=== PATIENT | female | born 1955 | race Caucasian/White ===

== ENCOUNTER 2020-11-13 08:33 | Outpatient (CLI) | payer OTHER, SELFPAY | END 2020-11-13 08:34 | disposition home or self-care (01) | LOC: ANHCOVIDVC 08:33 | PROVIDERS: PCP Family Medicine | DX: Z23 Encounter for immunization (principal) | CPT/HCPCS: 0001A; 91300 ==

== ENCOUNTER 2020-12-04 08:31 | Outpatient (CLI) | payer OTHER, SELFPAY | END 2020-12-04 08:32 | disposition home or self-care (01) | LOC: ANHCOVIDVC 08:31 | PROVIDERS: PCP Family Medicine | DX: Z23 Encounter for immunization (principal) | CPT/HCPCS: 0002A; 91300 ==

== ENCOUNTER → 2020-12-12 01:36 | Outpatient (CLI) | payer OTHER, SELFPAY ==
[2020-12-12 19:39] LABS: SARS-CoV-2 RNA PCR Negative
== END ==
PROVIDERS: PCP Family Medicine; Visit Provider Internal Medicine Gastroenterology
DX: Z01.812 Encounter for preprocedural laboratory examination (principal); Z20.822 Contact with and (suspected) exposure to COVID-19
CPT/HCPCS: C9803; U0003; U0005

== ENCOUNTER 2020-12-15 00:40 | Day surgery (SDC) | payer OTHER, SELFPAY ==
[2020-12-04 16:02] VITALS: BMI 22.7
[2020-12-15 10:26] VITALS: BP 209/87; PULSE 63; RESP 18; TEMP 36.6; O2SAT 96; BMI 22.5
[2020-12-15] MEDS: LACTATED RINGERS 1,000 ML 150 ML IV CONT (10:32)
--- NOTE | 2020-12-15 10:50 | WPDANESEPPF ---
Anes - Initial Pre Proc Eval Procedure: Operation Date: 12/15/20 11:15 Proposed Procedures p Screening Colonoscopy - Myron Barba MD Date/Time: 12/15/20 10:50 Surgeon: Myron Barba MD Pre Op Diagnosis: neoplasm screening Patient Data Age: 65 Gender: F Height: 5 ft 6 in Weight: 63.4 kg Last Vital Signs Temp 97.8 F 12/15/20 10:26 Pulse 63 12/15/20 10:26 Resp 18 12/15/20 10:26 BP 209/87 H 12/15/20 10:26 Pulse Ox 96 12/15/20 10:26 Allergies Allergy/AdvReac Type Severity Reaction Status Date / Time codeine Allergy Unknown allergic Verified 12/15/20 10:18 Home Medications Medication Instructions Recorded Confirmed Type triamcinolone acetonide 0.1 % 1 applic TOPICAL QID #80 gm 07/11/19 12/15/20 Rx topical cream hydrochlorothiazide 12.5 mg capsule 12.5 mg PO DAILY #90 cap 01/29/20 12/15/20 Rx metformin 500 mg tablet,extended 500 mg PO QPM #90 tablet 01/29/20 12/15/20 Rx release 24hr lisinopril 10 mg tablet 5 mg PO DAILY #45 tablet 04/03/20 12/15/20 Rx estradiol 1 mg tablet 1 mg PO DAILY #90 tablet 07/09/20 12/15/20 Rx nebivolol 20 mg tablet 20 mg PO DAILY #90 tablet 11/20/20 12/15/20 Rx interferon beta-1a (albumin) 44 mcg SUBCUT 3XW 12/04/20 12/15/20 History [Rebif Rebidose] sod picosulf 10 mg-magnes 3.5 160 ml PO BID #160 ml 12/10/20 12/15/20 Rx gram-citric 12 gram/160 mL oral solution Patient hx anesthesia problems: none Family hx anesthesia problems: none PMFSH Past Medical History Medical History Dysuria Hyponatremia Seborrheic keratoses, inflamed Family History Family History Father Patient's father is Grandparent Cerebrovascular accident Other Family history of cardiovascular disease Hypertension Social History Social History Smoking status: Never smoker Alcohol intake: current Drinks per week: 3 Substance use: never Substance use type: does not use Living arrangements: with family Spiritual care concerns: No Anes - Eval Final PreProcedure Day of Procedure 12/15/20 10:50 Patient weight: normal Heart: regular rate and rhythm Lungs: clear to auscultation Airway: Mallampati scale class III Neurological: alert and oriented Last oral intake: >/= 8 hours ASA classification: III Emergent: no Anesthetic plan: proceed Anesthesia type and monitoring: general GIVS and standard monitoring Informed Consent: The patient's anesthetic plan and its attendant risks and benefits were discussed with the patient/family/POA. Questions were solicited and answers provided to the satisfaction of the patient/family/POA.
--- NOTE | 2020-12-15 10:56 | SUR.PREOP ---
Blood pressure 209/87 Dr. Mcgovern (anesthesiologist) notified. No new orders.
--- NOTE | 2020-12-15 11:08 | PM.HPGS ---
History of Present Illness History of Present Illness Consent: Risks, benefits, and alternatives have been discussed and questions answered. Patient agrees to proceed with procedure. Chief complaint: neoplasm screening Narrative: Linn Stephens is a 65 year old female with last colonoscopy 10 years ago Review of Systems Constitutional: Constitutional: Denies headache(s) and Denies weakness Eyes: Eyes: Denies blurry vision ENT: Reports Normal hearing present, Denies headache(s) and Denies neck pain Cardiovascular: Cardiovascular: Denies chest pain and Denies dyspnea Respiratory: Respiratory: Denies dyspnea Gastrointestinal: Gastrointestinal: Reports no additional gastrointestinal complaints Genitourinary: Genitourinary: Denies dysuria Musculoskeletal: Musculoskeletal: Denies neck pain Integumentary/Breasts: Skin/Breast: Denies dry skin Neurologic: Reports Normal hearing present, Denies headache(s) and Denies weakness Psychiatric: Psychiatric: Denies anxiety Endocrine: Endocrine: Denies change in body appearance Hematologic/Lymphatic: Hematologic/Lymphatic: Denies easy bleeding Allergic/Immunologic: Allergic/Immunologic: Denies urticaria PMFSH Past Medical History Medical History Dysuria Hyponatremia Seborrheic keratoses, inflamed Family History Family History Father Patient's father is Grandparent Cerebrovascular accident Other Family history of cardiovascular disease Hypertension Social History Social History Smoking status: Never smoker Alcohol intake: current Drinks per week: 3 Substance use: never Substance use type: does not use Living arrangements: with family Spiritual care concerns: No Meds Home Medications and Allergies Home Medications Medication Instructions Recorded Confirmed Type triamcinolone acetonide 0.1 % 1 applic TOPICAL QID #80 gm 07/11/19 12/15/20 Rx topical cream hydrochlorothiazide 12.5 mg capsule 12.5 mg PO DAILY #90 cap 01/29/20 12/15/20 Rx metformin 500 mg tablet,extended 500 mg PO QPM #90 tablet 01/29/20 12/15/20 Rx release 24hr lisinopril 10 mg tablet 5 mg PO DAILY #45 tablet 04/03/20 12/15/20 Rx estradiol 1 mg tablet 1 mg PO DAILY #90 tablet 07/09/20 12/15/20 Rx nebivolol 20 mg tablet 20 mg PO DAILY #90 tablet 11/20/20 12/15/20 Rx interferon beta-1a (albumin) 44 mcg SUBCUT 3XW 12/04/20 12/15/20 History [Rebif Rebidose] sod picosulf 10 mg-magnes 3.5 160 ml PO BID #160 ml 12/10/20 12/15/20 Rx gram-citric 12 gram/160 mL oral solution Allergies Allergy/AdvReac Type Severity Reaction Status Date / Time codeine Allergy Unknown allergic Verified 12/15/20 10:18 Vital Signs Vital Signs - 24 hr 12/15/20 10:26 Temperature 97.8 F Pulse Rate 63 Respiratory Rate 18 Blood Pressure 209/87 H Pulse Oximetry 96 Exam Const: General: comfortable and no acute distress HENMT: General nose exam: Normal nares present Eyes: General: appearance normal, both eyes and all related structures Neck: Neck: no JVD Resp: Auscultation: clear to auscultation bilaterally Cardio: Rate: regular rate Rhythm: regular rhythm GI: Inspection: non-distended GI Palp: Yes Soft to palpation Skin: General skin exam: normal color Neuro: General: gait normal Speech: normal speech Extrem: General: normal to inspection Psych: Mental Status: mental status grossly normal Assessment and Plan Assessment and plan (1) Colon cancer screening: Code(s): Z12.11 - Encounter for screening for malignant neoplasm of colon Status: Acute Assessment and Plan: colonoscopy
[2020-12-15 11:26] VITALS: BP 133/74; PULSE 75; RESP 15; O2SAT 100
[2020-12-15 11:36] VITALS: BP 135/79; PULSE 74; RESP 10; O2SAT 100
[2020-12-15 11:46] VITALS: BP 156/88; PULSE 63; RESP 15; O2SAT 100
[2020-12-15 11:48] LABS: Glucose Point of Care 74 (65-105)
== END 2020-12-15 11:50 | disposition home or self-care (01) ==
PROVIDERS: PCP Family Medicine; Visit Provider Internal Medicine Gastroenterology
PROC: 0DJD8ZZ Inspection of Lower Intestinal Tract, Via Natural or Artificial Opening Endoscopic (ICD-10-PCS; CPT 45378; principal; 2020-12-15 11:15)
DX: Z12.11 Encounter for screening for malignant neoplasm of colon (principal); D12.8 Benign neoplasm of rectum; K63.5 Polyp of colon; K57.30 Diverticulosis of large intestine without perforation or abscess without bleeding; Z79.84 Long term (current) use of oral hypoglycemic drugs
CPT/HCPCS: 45385; 82948; 88305; C9803; J2704; J7120; U0003; U0005

== ENCOUNTER → 2021-04-03 12:02 | Outpatient (CLI) | payer OTHER, SELFPAY ==
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
== END ==
PROVIDERS: PCP Physician Assistant Medical; Visit Provider Physician Assistant Medical
DX: M19.011 Primary osteoarthritis, right shoulder (principal)
CPT/HCPCS: 73030

== ENCOUNTER 2021-07-21 08:46 | Outpatient (CLI) | payer OTHER, SELFPAY ==
--- NOTE | 2021-07-21 09:02 | ECG_ITS ---
Measurements Intervals [place] Rate: 67 P: 46 AL: 131 QRS: -15 QRSD: 94 T: 21 QT: 399 QTc: 421 Interpretive Statements SINUS RHYTHM CANNOT RULE OUT SEPTAL INFARCT, AGE INDETERMINATE ABNORMAL ECG Electronically Signed On 07-21-2021 9:22:52 DEPARTMENT STORE SALESPERSON by Harmeet Britt D.O.
[2021-07-21 10:35] LABS: Anion Gap 6 mmol/L (8-16); Blood Urea Nitrogen 18 mg/dL (7-17); Calcium 9.4 mg/dL (8.4-10.2); Carbon Dioxide 31 mmol/L (22-30); Chloride 97 mmol/L (98-107); Estimated Glomerular Filt Rate > 60; Glucose 104 mg/dL (65-110); Potassium 3.8 mmol/L (3.4-5.0); Sodium 134 mmol/L (137-145)
== END 2021-07-21 08:47 | disposition home or self-care (01) ==
LOC: ANHSURGERY 08:52
PROVIDERS: Anesthesiology; PCP Family Medicine; Visit Provider Orthopaedic Surgery
DX: R73.03 Prediabetes (principal); Z79.899 Other long term (current) drug therapy; I10 Essential (primary) hypertension; R94.31 Abnormal electrocardiogram [ECG] [EKG]
CPT/HCPCS: 36415; 80048; 93005

== ENCOUNTER 2021-07-22 00:30 | Day surgery (SDC) | payer OTHER, SELFPAY ==
[2021-07-16 10:33] VITALS: BMI 21.9
--- NOTE | 2021-07-16 10:46 | PC.NURSE ---
Report to the Outpatient Waiting Room, entrance under the green pavilion located off [facility], at time 10:00 on date 07/22/21. OR Time: 12:00. - You and your visitor will be asked a series of questions to screen for COVID 19 for your protection. - A mask is required within the hospital. - Only one visitor is allowed at this time. Patient visitors will be guided where to wait when not with patient. Preoperative COVID Testing Requirements: No COVID Test needed if: (proof is required; if not received patient will have Rapid Test prior to entry) - Patient has received COVID Vaccine at least 14 days prior to procedure date or - Patient has positive COVID test result within last 90 days of surgery date. COVID Test needed if above criteria is not met If not COVID vaccinated a COVID test must be conducted within 72 hours of surgery and patient is asked to isolate self from time of testing until procedure. You will go to the [facility] for your COVID testing. The [facility] is located at the corner of [address] from [facility]. You will only be called if COVID results are positive and your surgeon may reschedule your elective surgery date. Patients may have clear liquids (water, carbonated beverages, clear teas, apple juice) until 3 hours prior to surgery with a maximum of 20 ounces. - No food from midnight until time of surgery - Infants may have breast milk until 4 hours before surgery, infant formula 6 hours prior to surgery. - Children will be allowed to drink immediately following surgery. If applicable, please bring a bottle or sippy cup to assist with drinking. Juice, water, soda, and popsicles are readily available. For infants on formula, please bring formula the day of surgery. Pacifiers are allowed. Take the following medications with a SIP of water the morning of surgery: BYSTOLIC, ESTRADIOL Medications to discontinue per physician: VITAMINS/SUPPLEMENTS Date to take last dose: 07/18/21 STOP ASPIRIN 7 DAYS PRE-OP PER DR. SALVADOR Please no make-up, nail lebanese, hairspray, perfume, deodorant, or body powder the day of surgery. No jewelry (including any body piercings) or valuables the day of surgery, leave them at home. Please take a shower or bath the night before, or the morning of, surgery with an antibacterial soap. Wear comfortable, loose fitting clothing. Children are encouraged to wear pajamas. - Jewelry must be removed prior to entering the operating room. Rings and piercings that are not removed may be cut off. - The hospital will not accept responsibility for valuables. - Please leave all valuables, including medications, at home the day of surgery. If you are going home after surgery, a licensed pile driver operator must drive you home. - NO public transportation without another adult. - We recommend that an adult stay with you for 24 hours following discharge. - We also recommend that you do not drive, make important decision, drink alcoholic beverages, or take any drugs that were not prescribed by your health care provider for at least 24 hours after your discharge time. For Pediatric surgeries, we recommend two adults accompany the child home (only one inside the building at this time). Follow any additional instructions given to you from your surgeon. Telephone instructions given to KOREY FAJARDO and asked if any additional questions and then verbalized understanding. Patient advised to call surgeon office or pre surgery nurse liaison [phone] if any additional questions.
[2021-07-22] VITALS (17 sets, daily range): BP systolic 150–204; BP diastolic 75–107; PULSE 67–95; RESP 10–18; TEMP 36–36.5; O2SAT 91–100; BMI 22.2
[2021-07-22 10:46] LABS: Glucose Point of Care 109 mg/dl (65-105)
[2021-07-22] MEDS: LACTATED RINGERS 1,000 ML 30 ML IV CONT ×2 (10:46→14:47)
[2021-07-22] MEDS: ACETAMINOPHEN 500 MG TABLET 1000 MG PO (10:46)
[2021-07-22] MEDS: KETOROLAC 15 MG/ML VIAL (*BKC) IV PUSH (10:46)
--- NOTE | 2021-07-22 10:53 | WPDANESEPPF ---
Anes - Initial Pre Proc Eval Procedure: Operation Date: 07/22/21 12:00 Proposed Procedures p Right Arthroscopic Rotator Cuff Repair, Proceed as Indicated - Marlon Day MD Date/Time: 07/22/21 10:53 Surgeon: Marlon Day MD Pre Op Diagnosis: complete right rotator cuff tear Patient Data Age: 65 Gender: F Height: 1.68 m Weight: 62.5 kg Allergies Allergy/AdvReac Type Severity Reaction Status Date / Time codeine Allergy Unknown Headache Verified 07/22/21 10:17 Home Medications Medication Instructions Recorded Confirmed Type estradiol 1 mg tablet 1 mg PO DAILY #90 tablet 07/09/20 07/22/21 Rx nebivolol 20 mg tablet 20 mg PO DAILY #90 tablet 11/20/20 07/22/21 Rx interferon beta-1a (albumin) 44 mcg SUBCUT 3XW 12/04/20 07/22/21 History [Rebif Rebidose] hydrochlorothiazide 12.5 mg capsule 12.5 mg PO DAILY #90 cap 01/20/21 07/22/21 Rx lisinopril 10 mg tablet 5 mg PO DAILY #45 tablet 03/30/21 07/22/21 Rx metformin 500 mg tablet,extended See Rx Instructions .ROUTE 05/07/21 07/22/21 Rx release 24 hr .COMPLEX #90 tablet aspirin 81 mg tablet,delayed 81 mg PO DAILY 06/09/21 07/22/21 History release multivitamin-ferrous 1 tablet PO DAILY 06/09/21 07/22/21 History fumarate-folic acid 18 mg-400 mcg tablet B-complex with vitamin C 1 tablet PO DAILY 07/15/21 07/22/21 History ascorbic acid (vitamin C) 1,000 mg 1 g PO DAILY 07/15/21 07/22/21 History tablet cholecalciferol (vitamin D3) 50 50 mcg PO DAILY 07/15/21 07/22/21 History mcg (2,000 unit) capsule Laboratory Tests 07/22/21 10:43 POC Capillary Glucose 109 mg/dl H mg/dl (65-105) Patient hx anesthesia problems: none Family hx anesthesia problems: none Results Review: All pre-operative results and documents have been reviewed as part of the pre-operative evaluation. [facility] Past Medical History Medical History Colon polyp Dysuria Hyponatremia Marfan syndrome Multiple sclerosis Seborrheic keratoses, inflamed Surgical History Surgical History History of hysterectomy (~1994) Family History Family History Father Patient's father is Grandparent Cerebrovascular accident Other Family history of cardiovascular disease Hypertension Social History Social History Smoking status: Never smoker Alcohol intake: current Drinks per week: 3 Alcohol use details: on weekends Substance use: never Substance use type: does not use Living arrangements: with family Spiritual care concerns: No Anes - Eval Final PreProcedure Day of Procedure 07/22/21 10:53 Patient weight: normal Heart: regular rate and rhythm Lungs: clear to auscultation Airway: Mallampati scale class II Neurological: alert and oriented Last oral intake: >/= 8 hours ASA classification: III Emergent: no Anesthetic plan: proceed Anesthesia type and monitoring: general LMA and standard monitoring Results Review: All pre-operative results and documents have been reviewed as part of the pre-operative evaluation. Informed Consent: The patient's anesthetic plan and its attendant risks and benefits were discussed with the patient/family/POA. Questions were solicited and answers provided to the satisfaction of the patient/family/POA.
--- NOTE | 2021-07-22 12:23 | WPDHPUPDATE1 ---
History and Physical Update Update Date/Time: 07/22/21 12:23 History and Physical has been reviewed, including an updated exam of the patient. There are NO changes in the patient's condition. Risks, benefits, and alternatives have been discussed and questions answered. Patient agrees to proceed with procedure.
[2021-07-22] MEDS: ceFAZolin 2 GM/D5W 50 ML 2 GM/50 ML BAG IVPB (12:26)
--- NOTE | 2021-07-22 12:26 | WPDANESPNB ---
Anes - Peripheral Nerve Block Date/Time: 07/22/21 12:26 I have discussed with the patient/family/POA the placement of a peripheral nerve block for post-operative pain management, including associated risks, benefits, complications, and side effects. Alternative methods of post-operative analgesia were detailed. Questions were solicited and answers provided to the satisfaction of the patient/family/POA. Time-Out: A pre-procedural Time-Out was completed immediately before starting the procedure and confirmed: Patient Identification, Site, Procedure, Patient Position and the Availability of Requisite Equipment. Clinical Indications: Acute post-operative pain management requested by the operative surgeon. Nerve Block Insertion Note Anes-nerve block: interscalene right Patient position: other (sitting) Skin prep: chlorhexidine Needle: 22 gauge, stimulating, insulated echogenic needle. Needle length: 50 mm Technique: nerve stimulation lost at (mA) (0.3) and ultrasound Technique comment: mid2mg fent 100mcg Injectate: bupivacaine 0.5% with epi 5 mcg/ml (30ml no epi) and dexamethasone (mg) (4) Observations: tolerated well Complications: none Procedure start time:: 1216 Procedure end time:: 1223
[2021-07-22 15:04] LABS: Glucose Point of Care 96 mg/dl (65-105)
[2021-07-22] MEDS: LABETALOL HCL INJ 100 MG/20 ML VIAL IV PUSH ×5 (15:19→15:58)
[2021-07-22] MEDS: hydrALAZINE HCL 20 MG/ML VIAL 10 MG IV PUSH (16:03)
--- NOTE | 2021-07-22 16:46 | W.PM.PROC2 ---
Procedure Note - Detailed Date of Procedure 07/22/21 Pre-op Diagnosis Massive right rotator cuff tear Post-op Diagnosis other (1. Right shoulder massive rotator cuff tear 2. Biceps tendinosis ) Procedure Performed 1. Arthroscopic rotator cuff repair 3. Arthroscopic biceps tenodesis Surgeon Marlon Day MD Environmental Health And Safety Manager Bernie Rosen PA-C Anesthesia general and regional ( interscalene block) Indications Significant acute component to shoulder pain and external rotation weakness, suggesting progression of a chronic superior tear to a include greater portion of the infraspinatus. Findings Massive retracted tear of the supraspinatus and upper infraspinatus. Very chronically tethered and not reducible. The subscapularis was normal. The biceps showed mild tendinosis. The infraspinatus was partially reducible. The tissue at the posterior rotator cuff footprint appeared to be more acutely torn. A partial repair with single All suture anchor at the posterior rotator cuff and 3 simple sutures was performed. A biceps tenodesis with single anchor was performed at the proximal inter tubercular groove. No acromioplasty was performed to prevent superior escape. The articular cartilage was healthy. Description of Procedure Preoperative antibiotics were given. An interscalene block was administered in the preoperative area. The patient was bought brought to the operating room. A general anesthetic was administered. The patient was carefully positioned in the beach chair position. The head and neck were carefully positioned. The non operative extremity was also carefully positioned. The shoulder was prepped and draped in the usual sterile fashion. Examination was performed. Standard posterior and anterior arthroscopic portals were established. Inflow achieved with the arthroscopic pump using saline and epinephrine. The glenohumeral joint was carefully inspected. The cartilage was healthy. The supra and infraspinatus were torn and retracted. Subscapularis was normal. The biceps showed mild tendinosis in the intertubercular area. Also some early fraying as it entered the joint. Tenodesis was performed the locking lassos type suture and the tension in the biceps was released slightly. Suture anchor placed at the intertubercular groove. A 2nd suture from the anchor was used to further support the tendon. Attention was turned to the subacromial space. A complete bursectomy was performed. The rotator cuff and footprint were lightly debrided. The tear configuration was carefully assessed. It was clear that the tear could not be reduced even with releases performed. The tissue was fairly poor and did not appear to be capable of holding the sutures. Posterior cuff was nicely reducible and appeared to be relatively acute. The rotator cuff footprint was lightly debrided and the single anchor was placed through an accessory posterior superior portal. The sutures were passed through good tissue and reduction was nicely obtained without undue tension. Several small venting holes were placed with the awl at the posterior lateral footprint. The sutures were tied arthroscopically. The arthroscopic instruments were removed. The wounds were closed with 3-0 Monocryl subcuticular suture and steri strips. There were no complications. A sling was applied and the patient brought to the recovery room. Physician tax assistant, Bernie Rosen PA-C, required for surgery; including patient positioning, draping, arthroscopic camera operation, maintaining instrument position, suture retrieval, wound closure, and dressing and sling placement. Estimated Blood Loss 20 Pathology none sent Complications No immediate complications Condition stable Disposition PACU
== END 2021-07-22 17:22 | disposition home or self-care (01) ==
PROVIDERS: PCP Family Medicine; Visit Provider Orthopaedic Surgery
PROC: (CPT 29805; principal; 2021-07-22 12:00)
DX: S46.011A Strain of muscle(s) and tendon(s) of the rotator cuff of right shoulder, initial encounter (principal); X50.0XXA Overexertion from strenuous movement or load, initial encounter; M75.21 Bicipital tendinitis, right shoulder; G89.18 Other acute postprocedural pain; Z79.82 Long term (current) use of aspirin; Z79.84 Long term (current) use of oral hypoglycemic drugs; Q87.40 Marfan syndrome, unspecified; G35 Multiple sclerosis; L82.0 Inflamed seborrheic keratosis
CPT/HCPCS: 64415; 29827; 29828; 82948; A4565; A9270; J0330; J0360; J0690; J1100; J1885; J2250; J2405; J2704; J3010; J7120

== ENCOUNTER 2021-12-10 08:48 | Outpatient (CLI) | payer MEDICARE, SELFPAY ==
--- NOTE | ~2021-12-10 | MM_ITS ---
EXAMINATION: MM screening [facility] BI w milan HISTORY: Screening TECHNIQUE: Craniocaudal and mediolateral oblique 3-D tomosynthesis images were obtained and synthetic 2-D images were generated. CAD analysis was submitted and interpreted. COMPARISON: Comparison to multiple prior studies sequentially, with oldest reviewed study dated 12/16. BREAST PARENCHYMAL COMPOSITION: The breasts are extremely dense, which lowers the sensitivity of [facility] mography FINDINGS: There is no evidence of suspicious mass, calcification, or architectural distortion to sugg est malignancy in either breast. There has been no suspicious interval change. IMPRESSION: 1. No mammographic evidence of malignancy. 2. Recommend routine screening mammography in one year. BI-RADS Category 1: Negative Reviewed, dictated and finalized at location A.
== END 2021-12-10 08:49 | disposition home or self-care (01) ==
LOC: ANHIMG 08:49
PROVIDERS: PCP Family Medicine; Visit Provider Physician Assistant Medical
DX: Z12.31 Encounter for screening mammogram for malignant neoplasm of breast (principal)
CPT/HCPCS: 77063; 77067

== ENCOUNTER 2022-06-08 08:06 | Outpatient (NON) | payer MEDICARE, SELFPAY ==
[2022-06-08 19:25] LABS: Add Urine Microscopic? YES; Appearance Urine Cloudy (Clear); Bacteria Urine Trace /hpf; Bilirubin Urine Negative (Negative); Blood Urine 2+ (Negative); Color Urine Yellow (Yellow); Glucose Urine UA Negative (Negative); Ketones Urine Negative (Negative); Leukocyte Esterase Ur 2+ LEU/UL (NEGATIVE); Nitrate Urine Positive (Negative); Protein Urine 1+ mg/dL (Negative); RBC Urine 21-50 /hpf (0-2); Specific Grav Ur 1.011 (1.001-1.035); Squamous Epithelial Cell Urine Rare /hpf (Few); Urobilinogen Urine Negative mg/dL (<2.0); WBC Urine >75 /hpf (0-3)
== END 2022-06-08 08:07 | disposition home or self-care (01) ==
PROVIDERS: PCP Family Medicine; Visit Provider Family Medicine
DX: N39.0 Urinary tract infection, site not specified (principal)
CPT/HCPCS: 81001

== ENCOUNTER 2022-06-10 14:43 | Outpatient (NON) | payer MEDICARE, SELFPAY | END 2022-06-10 14:44 | disposition home or self-care (01) | PROVIDERS: PCP Family Medicine; Visit Provider Family Medicine | DX: N39.0 Urinary tract infection, site not specified (principal) | CPT/HCPCS: 87086 ==

== ENCOUNTER 2022-10-08 10:31 | Outpatient (CLI) | payer MEDICARE, SELFPAY ==
[2022-10-08 11:43] LABS: Kit Draw Collected
== END 2022-10-08 10:32 | disposition home or self-care (01) ==
LOC: ANHGOSHLAB 10:33
PROVIDERS: PCP Family Medicine; Visit Provider Family Medicine
DX: E87.1 Hypo-osmolality and hyponatremia (principal)
CPT/HCPCS: 36415

== ENCOUNTER 2022-12-22 10:22 | Emergency (ER) | payer MEDICARE, SELFPAY ==
--- NOTE | ~2022-12-22 | XR_ITS ---
XR foot RT min 3V DATE: 12/22/2022 10:59 INDICATION: Diffuse swelling and pain of right foot after fall TECHNIQUE: 4 views COMPARISON: None FINDINGS: There is prominent soft tissue swelling over the lateral malleolus and subtle fracture at t he inferior tip of the lateral malleolus. No right foot fracture is evident. Mild osteoarthritis at the first metatarsophalangeal joint. IMPRESSION: Mild osteoarthritis at first metatarsophalangeal joint Small cortical fracture and inferior tip of lateral malleolus with overlying soft tissue swelling Reviewed, dictated and finalized at location A. IMPRESSION: Mild osteoarthritis at first metatarsophalangeal joint Small cortical fracture and inferior tip of lateral malleolus with overlying so ft tissue swelling
--- NOTE | ~2022-12-22 | XR_ITS ---
XR ankle RT min 3V DATE: 12/22/2022 10:58 INDICATION: Fall. Pain, swelling, bruising of lateral ankle and entire foot TECHNIQUE: 4 views of right ankle COMPARISON: None FINDINGS: There is anterolateral soft tissue swelling of the ankle. There is a small transverse nondisplaced fracture at the very tip of the lateral malleolus. No other fracture or dislocation of the ankle or disruption of the ankle mortise. No periosteal react ion or bone destruction. IMPRESSION: Small cortical avulsion fracture at the inferior tip of the lateral malleolus with overly ing soft tissue swelling Reviewed, dictated and finalized at location A. IMPRESSION: Small cortical avulsion fracture at the inferior tip of the lateral malleolus with overlying soft tissue swelling
--- NOTE | 2022-12-22 10:29 | ED.LOWEXIN ---
HPI - Extremity Injury (Lower) General Chief Complaint: Extremity Injury, Lower Stated Complaint: INJURED R ANKLE Source: patient and RN notes reviewed History of Present Illness HPI Narrative: 67 yo F presents to urgent care with visitor at side. Pt states she was sitting on a couch with her right ankle crossed over her left knee when she stood up, not realizing her foot or leg was asleep, causing her to fall. Pt reports injuring her right ankle at the time. Reports right lateral ankle pain and swelling. Pt denies any other injury during the fall, including head injury. Denies any numbness or tingling. This injury occurred on 12/15/22 while she was caring for her dying her . Pt's passed a few days ago and the services were yesterday, leaving pt standing a lot yesterday. Pt has been elevating and icing the ankle in the evenings as much as possible. Pt has also been taking ibuprofen. Related Data Home Medications Medication Instructions Recorded Confirmed interferon beta-1a (albumin) 44 44 mcg subcut 3XW 12/04/20 12/22/22 mcg/0.5 mL subcutaneous pen injector (Rebif Rebidose) aspirin 81 mg tablet,delayed 81 mg PO DAILY 06/09/21 12/22/22 release (Adult Low Dose Aspirin) multivitamin-ferrous 1 tablet PO DAILY 06/09/21 12/22/22 fumarate-folic acid 18 mg-400 mcg tablet (Centrum) B-complex with vitamin C 1 tablet PO DAILY 07/15/21 12/22/22 ascorbic acid (vitamin C) 1,000 mg 1 g PO DAILY 07/15/21 12/22/22 tablet cholecalciferol (vitamin D3) 50 50 mcg PO DAILY 07/15/21 12/22/22 mcg (2,000 unit) capsule Allergies Allergy/AdvReac Type Severity Reaction Status Date / Time codeine Allergy Unknown Headache Verified 12/22/22 10:33 Review of Systems Review of Systems: CONSTITUTIONAL: Denies fever, chills, or sweats. EYES: Denies visual changes, redness, or discharge. ENT: Denies otalgia and sore throat CARDIOVASCULAR: Denies chest pain, palpitations, or edema. RESPIRATORY: Denies cough or dyspnea. GASTROINTESTINAL: Denies abdominal pain, nausea, vomiting, or diarrhea. GENITOURINARY: Denies dysuria or hematuria. SKIN: bruising to right ankle, foot, and toes MUSCULOSKELETAL: right lateral and anterior ankle pain and swelling. Patient states the pain to her lower leg as well, anteriorly. NEUROLOGIC: Denies headache, numbness, or weakness. Pertinent positives per HPI. [facility] Past Medical History Medical History Colon polyp Dysuria Hyponatremia Marfan syndrome Multiple sclerosis Seborrheic keratoses, inflamed Surgical History Surgical History History of hysterectomy (~1994) Family History Family History Father Patient's father is Grandparent Cerebrovascular accident Other Family history of cardiovascular disease Hypertension Social History Social History Smoking status: Never smoker Alcohol intake: current Drinks per week: 5 Alcohol use details: on weekends Substance use: never Substance use type: does not use Living arrangements: with family Spiritual care concerns: No Comments At the time of my signature, I reviewed and agree with the nursing past medical, surgical, social, and family history. There is no relevant family history pertinent to the patient complaint. Exam Narrative: GENERAL: This is a well-nourished, well-developed patient, in no apparent distress. HEAD: normocephalic, atraumatic. EYES: Sclera clear/white. Vision is grossly intact. EARS: External ears normal, auditory canals clear and without drainage. Hearing grossly intact. NOSE: External nose normal with no obvious nasal discharge, nares without redness, no rhinorrhea. THROAT: Mucous membranes moist, posterior pharynx clear.
[2022-12-22 10:40] VITALS: BP 214/109; PULSE 72; RESP 16; TEMP 36.8; O2SAT 100
[2022-12-22 12:00] VITALS: BP 212/92
== END 2022-12-22 12:06 | disposition home or self-care (01) ==
PROVIDERS: Emergency Provider Nurse Practitioner Family; PCP Family Medicine
DX: S82.64XA Nondisplaced fracture of lateral malleolus of right fibula, initial encounter for closed fracture (principal); W19.XXXA Unspecified fall, initial encounter; Q87.40 Marfan syndrome, unspecified; G35 Multiple sclerosis
CPT/HCPCS: 29515; 73610; 73630; 99214; G0463

== ENCOUNTER 2023-04-05 18:43 | Emergency (ER) | payer OTHER, MEDICARE, SELFPAY ==
[2023-04-05] VITALS (22 sets, daily range): BP systolic 152–217; BP diastolic 74–116; PULSE 71–93; RESP 12–24; TEMP 36.9; O2SAT 96–100
--- NOTE | ~2023-04-05 | CT_ITS ---
EXAMINATION: CT facial & cervical spine wo DATE: 04/05/2023 20:42 INDICATION: fall land on face TECHNIQUE: Computed tomography (CT) of the maxillofacial region and cervical spine was performed with out intravenous contrast. Automated exposure control and iterative reconstruction technique were empl oyed. The dose-length product was 145.98 mGy-cm. COMPARISON: None FINDINGS: CERVICAL: Vertebral Body Alignment: Intact. Focal angularity of the cervical lordosis at C3-4. Trace anterolist hesis at C4-5. Trace retrolisthesis at C5-6. Slight reversed lordosis centered at C5. These findings likely account to be related to degenerative changes. Craniocervical and atlantoaxial alignment: Mild degenerative change. Alignment intact. Osseous structures/fracture: No evidence of a lytic or blastic process in the visualized spine. No e vidence of acute fracture. Severe erosive facet arthropathy on the left at C3-4. Cervical soft tissues: The paraspinal soft tissues planes are maintained. 8 mm left upper lobe nodule . Degenerative changes: Degenerative changes, without severe neural foraminal or central canal narrowin g. FACE: Soft Tissues: No significant superficial soft tissue swelling. Facial bones: No acute fracture. No lytic or blastic process. Eyes: The globes are intact. The soft tissue planes of the orbits are maintained. Paranasal Sinuses: Trace right mastoid fluid, the remaining visualized aerated spaces are clear. Foreign Bodies: No radiopaque foreign bodies. Other Findings: None. IMPRESSION: No acute fracture or traumatic malalignment in the cervical spine. No acute facial bone fracture. 8 mm left upper lobe nodule, incompletely evaluated. Recommend outpatient, nonemergent low-dose nonco ntrast CT of the chest for further evaluation. Reviewed, dictated and finalized at location K. IMPRESSION: No acute fracture or traumatic malalignment in the cervical spine. No acute fac ial bone fracture. 8 mm left upper lobe nodule, incompletely evaluated. Recommend outpatient, none mergent low-dose noncontrast CT of the chest for further evaluation.
--- NOTE | ~2023-04-05 | CT_ITS ---
EXAMINATION: CT brain wo con DATE: 04/05/2023 20:42 INDICATION: fall on thinners . TECHNIQUE: Computed tomography (CT) of the head was performed without intravenous contrast. The mA wa s adjusted according to patient size. Iterative reconstruction technique was employed. The dose-lengt h product was 681.00 mGy-cm. COMPARISON: 08/18/2009; MRI brain 11/13/2016. FINDINGS: 4 mm focal hyperdensity in the white matter of the right centrum semiovale. No acute extra-axial flui d collection. No hydrocephalus, mass, or herniation. No acute ischemic infarct. Unremarkable dural venous sinus attenuation. No acute osseous abnormality. The aerated spaces are clear. Moderate atrophy and patchy moderate chronic white matter change. Atherosclerotic intracranial calcif ication. IMPRESSION: 4 mm hyperdensity in the white matter of the right right centrum semiovale, suspicious for intraparen chymal hemorrhage. Results reported telephonically to Dr. Saba by Dr. Mayer at 9:09 PM on 04/05/2023. Reviewed, dictated and finalized at location K. IMPRESSION: 4 mm hyperdensity in the white matter of the right right centrum semiovale, doe picious for intraparenchymal hemorrhage. Results reported telephonically to Dr. Saba by Dr. Mayer at 9:09 PM on 04/05/20 23.
--- NOTE | 2023-04-05 19:38 | ECG_ITS ---
Measurements Intervals [place] Rate: 67 P: 37 VT: 128 QRS: -26 QRSD: 120 T: 50 QT: 448 QTc: 474 Interpretive Statements SINUS RHYTHM WITH FREQUENT SUPRAVENTRICULAR PREMATURE COMPLEXES SHORT VT INTERVAL LEFT VENTRICULAR HYPERTROPHY AND ST-T CHANGE [VOLTAGE CRITERIA PLUS ST/T ABNORMALITY] POSSIBLE SEPTAL MYOCARDIAL INFARCTION , OF INDETERMINATE AGE [30 ms Q WAVE IN V1/V2] ABNORMAL ECG COMPARED TO ECG 07/21/2021 09:19:41 LEFT VENTRICULAR HYPERTROPHY NOW PRESENT ST (T WAVE) DEVIATION NOW PRESENT Electronically Signed On 04-06-2023 9:24:05 CDT by Rupert Anglin M.D.
--- NOTE | 2023-04-05 19:39 | ED.FALL ---
HPI - Fall General Chief Complaint: Fall Stated Complaint: FALL, HIT FACE, LIP LAC Time Seen by Provider: 04/05/23 19:12 History of Present Illness HPI Narrative: Patient states that she thinks she tripped on something, unsure if it was a small child or a bottle cap, but landed on her face. She does have a history of high blood pressure for which she was started on some new blood pressure medicines. Denies any pain anywhere, including chest pain, shortness of breath, loss of consciousness, nausea or vomiting. She does have some soreness to her upper lip where she landed. Related Data Home Medications Medication Instructions Recorded Confirmed interferon beta-1a (albumin) 44 44 mcg subcut 3XW 12/04/20 04/01/23 mcg/0.5 mL subcutaneous pen injector (Rebif Rebidose) aspirin 81 mg tablet,delayed 81 mg PO DAILY 06/09/21 04/01/23 release (Adult Low Dose Aspirin) multivitamin-ferrous 1 tablet PO DAILY 06/09/21 04/01/23 fumarate-folic acid 18 mg-400 mcg tablet (Centrum) B-complex with vitamin C 1 tablet PO DAILY 07/15/21 04/01/23 ascorbic acid (vitamin C) 1,000 mg 1 g PO DAILY 07/15/21 04/01/23 tablet cholecalciferol (vitamin D3) 50 50 mcg PO DAILY 07/15/21 04/01/23 mcg (2,000 unit) capsule Allergies Allergy/AdvReac Type Severity Reaction Status Date / Time codeine Allergy Unknown Headache Verified 04/05/23 18:57 Review of Systems Review of Systems: CONST: No fever. HEENT: Cut to upper lip C/V: No chest pain RESP: No cough GI: No nausea or vomiting : No dysuria. M/S: No joint pain. SKIN: Cut to upper lip NEURO: [No headache or focal numbness or weakness] PSYCH: [No depression] [facility] Past Medical History Medical History Colon polyp Dysuria Hyponatremia Marfan syndrome Multiple sclerosis Seborrheic keratoses, inflamed Surgical History Surgical History History of hysterectomy (~1994) Family History Family History Father Patient's father is Grandparent Cerebrovascular accident Other Family history of cardiovascular disease Hypertension Social History Social History Smoking status: Never smoker Alcohol intake: current Drinks per week: 5 Alcohol use details: on weekends Substance use: never Substance use type: does not use Lack of Transportation: No Lack of Food: Never True Current Housing: I Have Housing Concerned About Future Housing: YES Difficulty Paying Gas/Electric Bills: No Difficulty Paying for Meds: No Currently Unemployed: No Education: Associate Degree Difficulty w/ Childcare or Family Care: No Living arrangements: with family Spiritual care concerns: No Exam Narrative: EXAMINATION OF ORGAN SYSTEMS/BODY AREAS: Constitutional: Vital signs per nursing GENERAL:[No acute distress, non-toxic appearing.] HEAD: Normal with no signs of head trauma. EYES: EOMI, conjunctiva normal ENT: Stellate laceration to L philtrum, with hematoma. No signs of malocclusion or loose teeth. LUNGS: Nonlabored breathing. HEART: [Regular rate and rhythm] ABD: [Soft], [nontender to palpation] EXT: Normal range of motion SKIN: [No rashes or lesions.] NEURO: [Alert and oriented x 3. No gross focal sensory or strength deficits.] PSYCH: Normal affect Course Vital Signs Vital signs: Vital Signs Temperature 98.4 F 04/05/23 18:45 Pulse Rate 77 04/05/23 18:45 Respiratory Rate 20 04/05/23 18:45 Pulse Oximetry 100 04/05/23 18:45 Temperature 98.4 F 04/05/23 22:00 Pulse Rate 79 04/05/23 22:54 Respiratory Rate 15 04/05/23 22:54 Blood Pressure 180/77 H 04/05/23 22:54 Pulse Oximetry 98 04/05/23 22:54 Procedures Laceration Laceration 1: Date: 04/05/23 Time
--- NOTE | 2023-04-05 20:00 | PC.NURSE ---
Neuro assessment is complete and is negative at this time
--- NOTE | 2023-04-05 20:00 | PC.NURSE ---
pt is axox4, abc are wnl. pt sts that she fell today over a bottle cap. pt has a lip laceration that is not bleeding. pt sts that she is complaint with HTN medications. is aware of b/p. neuro assessment is negative at this time
[2023-04-05] MEDS: TETANUS,DIPHTHERIA,AC PERTUSSIS ADULT (0.5 ML) BOOSTRIX IM (20:05)
--- NOTE | 2023-04-05 20:11 | PC.NURSE ---
pt sts that she is complaint with HTN meds. pt is on the park guard. PAC and PVC noted.
--- NOTE | 2023-04-05 21:00 | PC.NURSE ---
neuro assessment is complete and is negative at this time
[2023-04-05] MEDS: niCARdipine 20 MG/200 ML 20 MG/200 ML BAG 50 MG IV CONT (21:51)
--- NOTE | 2023-04-05 22:12 | PC.NURSE ---
pt started on cardene gtts at 5ml
[2023-04-05 22:26] LABS: Basophils Percent Auto 0.2 % (0.2-1.2); Hematocrit 41.7 % (37.0-47.0); Hemoglobin 14.4 g/dL (12.0-15.0); Immature Granulocyte Absolute 0.01 K/mm3 (0.00-0.031); Immature Granulocyte Percent A 0.2 % (0-0.5); Lymphocytes Absolute Auto 1.09 K/mm3 (0.9-3.2); Mean Corpuscular HGB Conc 34.5 g/dl (32-36); Mean Corpuscular Hemoglobin 30.6 pg (26-34); Mean Corpuscular Volume 88.5 fl (80-100); Mean Platelet Volume 10.2 fl (7.4-10.4); Monocytes Absolute Auto 0.5 K/mm3 (0.1-0.6); Monocytes Percent Auto 12.1 % (2.6-8.5); Neutrophils Absolute Auto 2.4 K/mm3 (1.3-6.7); Neutrophils Percent Auto 60.5 % (45.5-73.1); Platelet Count Result 244 k/mm3 (150-375); Red Blood Count 4.71 M/mm3 (4.2-5.4); Red Cell Distribution Width 12.5 % (11.5-14.5)
[2023-04-05 22:36] LABS: Anion Gap 4 mmol/L (8-16); Blood Urea Nitrogen 15 mg/dL (7-17); Calcium 8.5 mg/dL (8.4-10.2); Carbon Dioxide 31 mmol/L (22-30); Chloride 91 mmol/L (98-107); Estimated CRCL calculation 105 ml/min; Estimated Glomerular Filt Rate > 60; Glucose 96 mg/dL (65-110); INR 0.9; Potassium 3.4 mmol/L (3.4-5.0); Prothrombin Time 13.1 Seconds (11.1-14.7); Sodium 126 mmol/L (137-145)
[2023-04-05 22:37] LABS: Partial Thromboplastin Time 28.2 SECONDS (22.3-36.8)
--- NOTE | 2023-04-05 22:55 | PC.NURSE ---
Addendum entered by Day Rodríguez 04/05/23 23:23: [facility] ARRIVED @ [id number] Original Note: [facility] ACCEPTING PHYSICIAN: DR. ARCHULETA ER TO ER TRANSFER CALLED [facility] @ [phone]- ACCEPTED TRANSFER ETA: [id number]
--- NOTE | 2023-04-05 23:10 | PC.NURSE ---
juan r gtts paused for B/p.
--- NOTE | 2023-04-05 23:12 | PC.NURSE ---
neuro is negative and nicard gtts paused at this time
--- NOTE | 2023-04-05 23:23 | PC.NURSE ---
ems is here for transport. lip lac has been glued
--- NOTE | 2023-04-05 23:40 | PC.NURSE ---
report called to deja
== END 2023-04-05 23:30 | disposition short-term general hospital (02) ==
PROVIDERS: Emergency Provider Emergency Medicine; PCP Family Medicine
DX: S06.340A Traumatic hemorrhage of right cerebrum without loss of consciousness, initial encounter (principal); S01.81XA Laceration without foreign body of other part of head, initial encounter; I16.1 Hypertensive emergency; Z23 Encounter for immunization; I10 Essential (primary) hypertension; G35 Multiple sclerosis; Q87.40 Marfan syndrome, unspecified; Z86.010 Personal history of colon polyps; Z90.710 Acquired absence of both cervix and uterus; I49.1 Atrial premature depolarization; I51.7 Cardiomegaly; R94.31 Abnormal electrocardiogram [ECG] [EKG]; W01.0XXA Fall on same level from slipping, tripping and stumbling without subsequent striking against object, initial encounter
CPT/HCPCS: 12011; 36415; 70450; 70486; 72125; 80048; 85025; 85610; 85730; 90471; 90715; 93005; 96365; 96366; 99291

== ENCOUNTER 2023-06-29 14:01 | Outpatient (CLI) | payer MEDICARE, SELFPAY ==
--- NOTE | ~2023-06-29 | MM_ITS ---
EXAMINATION: MM screening [facility] BI w [facility] HISTORY: Screening mammogram TECHNIQUE: Craniocaudal and mediolateral oblique 3-D tomosynthesis images were obtained and synthetic 2-D images were generated. CAD analysis was submitted and interpreted. COMPARISON: 12/10/2021 06/02/2019, 01/22/2016 BREAST PARENCHYMAL COMPOSITION: The breasts are heterogeneously dense, which may obscure small masses . FINDINGS: No suspicious mass, calcification, or architectural distortion are identified in either kodi ast to suggest malignancy. There has been no suspicious interval change. IMPRESSION: 1. No mammographic evidence of malignancy. 2. Recommend routine screening mammography in one year. BI-RADS Category 1: Negative Reviewed, dictated and finalized at location A.
== END 2023-06-29 14:02 | disposition home or self-care (01) ==
LOC: ANHIMG 14:06
PROVIDERS: PCP Family Medicine; Visit Provider Family Medicine
DX: Z12.31 Encounter for screening mammogram for malignant neoplasm of breast (principal)
CPT/HCPCS: 77063; 77067

== ENCOUNTER → 2023-08-26 13:29 | Outpatient (CLI) | payer MEDICARE, SELFPAY ==
--- NOTE | ~2023-08-26 | MR_ITS ---
. EXAMINATION: MR lumbar spine wo con DATE: 08/26/2023 14:26 INDICATION: Full incontinence of feces. Low back pain. TECHNIQUE: Magnetic resonance imaging (MRI) of the lumbar spine was performed without intravenous con trast. Sequences included sagittal T2-weighted FSE, sagittal T2-weighted FS FSE, sagittal T1-weighted FSE, and axial T2-weighted FSE. COMPARISON: Lumbar spine MRI 01/11/2006 FINDINGS: There is 11 degrees dextroscoliosis of thoracolumbar spine. There is 3 mm anterolisthesis o f L3 on L4. Vertebral body heights are normal. There is severely decreased disc height at L1-L2, mild ly decreased disc height at L2-L3, and moderately decreased disc height at L3-L4. The distal spinal c ord signal intensity is normal. The conus medullaris is at T12. The following disc levels are specifi giovany discussed: L1-L2: The disc is bulging. There is mild bilateral facet joint osteoarthritis. There is mild right a nd moderate left neural foraminal stenosis. There is mild central canal stenosis. L2-L3: The disc is bulging. There is moderate right and mild left facet joint osteoarthritis. There i s mild bilateral neural foraminal stenosis. There is mild central canal stenosis. L3-L4: The disc is bulging. There is severe bilateral facet joint osteoarthritis. There is mild bilat eral neural foraminal stenosis. There is mild central canal stenosis. L4-L5: The disc is bulging. There is severe bilateral facet joint osteoarthritis. There is mild bilat eral neural foraminal stenosis. There is mild central canal stenosis. L5-S1: The disc does not extend beyond the endplate margin. There is mild bilateral facet joint osteo arthritis. There is no neural foraminal stenosis. There is no central canal stenosis. IMPRESSION: 1. Severe lumbar spondylosis, worsened from 01/11/2006. 2. Thoracolumbar dextroscoliosis. Reviewed, dictated and finalized at location A. ERTY ACCOUNTANT
== END ==
PROVIDERS: PCP Psychiatry & Neurology Neurology; Visit Provider Family Medicine
DX: R15.9 Full incontinence of feces (principal); M43.06 Spondylolysis, lumbar region; M41.85 Other forms of scoliosis, thoracolumbar region
CPT/HCPCS: 72148

== ENCOUNTER 2023-09-08 15:49 | Outpatient (CLI) | payer MEDICARE, SELFPAY ==
--- NOTE | ~2023-09-08 | XR_ITS ---
XR lumbar spine min 4V DATE: 09/08/2023 16:26 INDICATION: Lower back pain TECHNIQUE: Standing AP, lateral and flexion and extension lateral views COMPARISON: 08/26/2023 MR lumbar spine 09/11/2009 CT abdomen pelvis FINDINGS: There is diffuse osteopenia. Moderate rotatory dextroscoliosis of the thoracolumbar spine. No fracture or bone destruction of the lumbar spine is evident. Included lower thoracic and lumbar pe dicles appear intact. There is a transitional lumbosacral vertebra (L5) with sacralization and pseudoarthrosis on the left and apparent iliolumbar ligament ossification. There is grade 1 anterolisthesis at L3-4. There is severe degenerative disc disease at L1-2, with acra-uz-wlwvancl degenerative disc disease at L2-3, L3-4. L4-5 and L5-S1 interspaces appear relatively well preserved. There is no instability on flexion or extension. The sacroiliac joints are intact. IMPRESSION: Osteopenia Moderate rotatory dextroscoliosis Transitional fifth lumbar vertebra with sacralization pseudoarthrosis and iliolumbar ligament calcifi cation on the left Grade 1 anterolisthesis at L3-4 Severe degenerative disc disease at L1-2 Reviewed, dictated and finalized at location L. OR INDUSTRIAL ENGINEER IMPRESSION: Osteopenia Moderate rotatory dextroscoliosis Transitional fifth lumbar vertebra with sacralization pseudoarthrosis and iliol umbar ligament calcification on the left Grade 1 anterolisthesis at L3-4 Severe degenerative disc disease at L1-2
== END 2023-09-08 15:50 ==
PROVIDERS: PCP Family Medicine; Visit Provider Neurological Surgery
DX: M85.88 Other specified disorders of bone density and structure, other site (principal); M51.36 Other intervertebral disc degeneration, lumbar region
CPT/HCPCS: 72110

== ENCOUNTER 2023-10-26 11:20 | Outpatient (CLI) | payer MEDICARE, SELFPAY ==
[2023-10-26 19:18] LABS: Kit Draw Collected
== END 2023-10-26 11:21 | disposition home or self-care (01) ==
LOC: ANHGOSHLAB 11:22
PROVIDERS: PCP Family Medicine; Visit Provider Family Medicine
DX: R15.9 Full incontinence of feces (principal); N39.0 Urinary tract infection, site not specified
CPT/HCPCS: 36415

== ENCOUNTER 2023-11-01 10:24 | Outpatient (CLI) | payer MEDICARE, SELFPAY ==
--- NOTE | ~2023-11-01 | CT_ITS ---
EXAMINATION: CTA abdomen DATE: 11/01/2023 10:58 INDICATION: Essential hypertension TECHNIQUE: Computed tomographic angiography (CTA) of the abdomen was performed with 100 mL Omnipaque- 350 intravenous contrast. Maximum intensity projection 3D-reconstructions of the aorta and other christophe xavier were constructed by the technologist on a separate workstation. The dose-length product (DLP) wa s 182.18 mGy-cm. Automated exposure control and iterative reconstruction technique were employed. COMPARISON: 09/11/2009 FINDINGS: Minimal dependent atelectasis is present in the lung bases. The heart size is normal. The l iver, spleen, pancreas, and adrenal glands are normal. Stones are present in the nondistended gallbla dder. The kidneys are unremarkable. There are no pathologically enlarged abdominal lymph nodes. No fr ee intraperitoneal gas or evidence of bowel obstruction. No aneurysm or dissection of the abdominal aorta. The celiac axis, superior mesenteric artery, and in ferior mesenteric artery are normal at their origins. There are single renal arteries without evidenc e renal artery stenosis. There is severe lumbar spondylosis at L2-3. IMPRESSION: 1. No evidence of renal artery stenosis. Reviewed, dictated and finalized at location L. TECHNICIAN
[2023-11-01 10:47] LABS: Estimated Glomerular Filt Rate > 60
== END 2023-11-01 10:25 ==
LOC: GOSHIMG 10:29
PROVIDERS: PCP Family Medicine; Visit Provider Family Medicine
DX: I10 Essential (primary) hypertension (principal)
CPT/HCPCS: 74175; Q9967

== ENCOUNTER 2023-11-23 13:26 | Outpatient (CLI) | payer MEDICARE, SELFPAY ==
--- NOTE | 2023-11-23 13:33 | ECHO_ITS ---
Patient Info Name: Linn Stephens Age: 68 years : 1955 Gender: Female Ht: 66 in Wt: 116 lbs BSA: 1.56 m2 HR: 66 bpm BP: 176 / 111 mmHg Heart Rhythm: Sinus Rhythm Technical Quality: Good Exam Date: 11/23/2023 1:54 PM Exam Location: Echo Lab Patient Status: Outpatient Admit Date: 11/23/2023 Staff Ordering Physician: Harmeet Britt DO Pearl Digger: Janeen Allen RDCS Attending Provider: Harmeet Britt DO Referring Physician: Balwinder VILLEDA; Exam Type: CA echo dop color flow w con Study Info Indications Q87.40 - Marfan's syndrome, unspecified Complete two-dimensional, color flow and Doppler transthoracic echocardiogram is performed with contrast to opacify the left ventricle and to improve the deliniation of the left ventricle endocardial borders. Contrast/Agitated Saline Contrast/Ag. Saline: Definity Amount: 3.00 ml Administered By: Janeen Allen RDCS Existing IV Access: No New IV Access: Left Site Condition: IV removed Summary 1. Definity contrast administered improved wall motion interpretation. 2. Left ventricular chamber dimension is normal. 3. Left ventricular systolic function is normal, estimated at 55-60%. 4. The left ventricular diastolic function is grade II diastolic dysfunction. 5. E/e' 19 is elevated. 6. Left atrial chamber dimension is moderately enlarged. 7. The aortic valve is bicuspid. 8. There is trace aortic valve regurgitation. 9. The mitral valve has moderately calcified annulus. 10. There is mild tricuspid valve regurgitation. 11. Moderate pulmonary hypertension, estimated pulmonary arterial systolic pressure is 54 mmHg. Left Ventricle Definity contrast administered improved wall motion interpretation. E/e' 19 is elevated. Left ventricular chamber dimension is normal. Left ventricular systolic function is normal, estimated at 55-60%. The left ventricular diastolic function is grade II diastolic dysfunction. Right Ventricle Right ventricular chamber dimension is normal. Right ventricular systolic function is normal. Left Atria Left atrial chamber dimension is moderately enlarged. Right Atria Right atrial chamber dimension is normal. Aortic Valve The aortic valve is bicuspid. There is no aortic valve stenosis. There is trace aortic valve regurgitation. Pulmonic Valve There is no pulmonic regurgitation. Mitral Valve The mitral valve has moderately calcified annulus. There is no mitral valve stenosis. There is no mitral valve regurgitation. Tricuspid Valve There is mild tricuspid valve regurgitation. Moderate pulmonary hypertension, estimated pulmonary arterial systolic pressure is 54 mmHg. Pericardium/Pleural There is no pericardial effusion. Inferior Vena Cava Normal inferior vena cava with >50% collapse upon inspiration consistent with normal right atrial pressure, 5 mmHg. Aorta The aortic root size at the sinus of Valsalva is normal. Left Ventricular Outflow Tract Name Value Normal LVOT 2D LVOT Diameter 2.01 cm LVOT Doppler LVOT Peak Gradient 2 mmHg LVOT Mean Gradient 1 mmHg LVOT VTI 13.09 cm
[2023-11-23] MEDS: PERFLUTREN LIPID MICROSPHERES 1.5 ML VIAL DILUTED TO 10 ML TOTAL VOLUME IV PUSH (14:00)
--- NOTE | 2023-11-23 15:10 | IVDEFINITY ---
Prior to administration of IV Definity the patient was educated on the risks and benefits of the imaging enhancing agent including potential adverse side effects. The patient verbalized understanding. Allergies were verified. No exclusion criteria were identified and at least one of the following inclusion criteria were met: 1) physician request, 2) patient technically difficult to image (per the [place] [employer] Echocardi[employer] guidelines of two or more segments not discernable within the apical view), or 3) questionable left ventricular function. ?
== END 2023-11-23 13:27 | disposition home or self-care (01) ==
PROVIDERS: PCP Family Medicine; Visit Provider Internal Medicine Cardiovascular Disease
DX: Q87.40 Marfan syndrome, unspecified (principal); I08.3 Combined rheumatic disorders of mitral, aortic and tricuspid valves
CPT/HCPCS: C8929; Q9957

== ENCOUNTER 2024-02-01 09:05 | Outpatient (CLI) | payer MEDICARE, SELFPAY ==
[2024-02-01 12:41] LABS: Basophils Percent Auto 0.9 % (0.2-1.2); Eosinophils Absolute Auto 0.1 K/mm3 (0-0.3); Eosinophils Percent Auto 2.7 % (0-4.4); Hematocrit 34.2 % (37.0-47.0); Hemoglobin 11.4 g/dL (12.0-15.0); Immature Granulocyte Absolute 0.02 K/mm3 (0.00-0.031); Immature Granulocyte Percent A 0.4 % (0-0.5); Lymphocytes Absolute Auto 1.03 K/mm3 (0.9-3.2); Lymphocytes Percent Auto 22.9 % (18.3-44.2); Mean Corpuscular HGB Conc 33.3 g/dl (32-36); Mean Corpuscular Hemoglobin 30.8 pg (26-34); Mean Corpuscular Volume 92.4 fl (80-100); Mean Platelet Volume 10.4 fl (7.4-10.4); Monocytes Absolute Auto 0.8 K/mm3 (0.1-0.6); Monocytes Percent Auto 18.5 % (2.6-8.5); Neutrophils Absolute Auto 2.5 K/mm3 (1.3-6.7); Neutrophils Percent Auto 54.6 % (45.5-73.1); Platelet Count Result 270 k/mm3 (150-375); Red Cell Distribution Width 14.6 % (11.5-14.5); White Blood Count 4.5 K/mm3 (4.5-10.0)
[2024-02-01 13:04] LABS: Alanine Aminotransferase 22 U/L (6-35); Albumin Level 3.8 g/dL (3.5-5.1); Alkaline Phosphatase 54 U/L (38-126); Anion Gap 1 mmol/L (4-12); Aspartate Amino Transferase 46 U/L (14-36); Bilirubin,Total 0.8 mg/dL (0.2-1.3); Blood Urea Nitrogen 19 mg/dL (7-17); Calcium 9.2 mg/dL (8.4-10.2); Carbon Dioxide 29 mmol/L (22-30); Chloride 98 mmol/L (98-107); Cholesterol 193 mg/dL (0-200); Estimated Glomerular Filt Rate > 60; Glucose 99 mg/dL (65-110); HDL Direct 88 mg/dL; Potassium 5.8 mmol/L (3.4-5.0); Sodium 128 mmol/L (137-145); Triglycerides 69 mg/dL (<150)
[2024-02-01 13:18] LABS: LDL Cholesterol Direct 90 mg/dL
[2024-02-01 14:36] LABS: Hemoglobin A1C 5.6 % (<5.7)
== END 2024-02-01 09:06 | disposition home or self-care (01) ==
LOC: ANHGOSHLAB 09:06
PROVIDERS: PCP Family Medicine; Visit Provider Family Medicine
DX: E78.5 Hyperlipidemia, unspecified (principal); E87.1 Hypo-osmolality and hyponatremia; I10 Essential (primary) hypertension; R73.03 Prediabetes
CPT/HCPCS: 36415; 80053; 80061; 83036; 84443; 85025

== ENCOUNTER 2024-02-14 07:34 | Outpatient (CLI) | payer MEDICARE, SELFPAY ==
--- NOTE | ~2024-02-14 | CT_ITS ---
EXAMINATION: CTA chest DATE: 02/14/2024 08:03 INDICATION: Congenital insufficiency of the aortic valve. Assess for thoracic aortic aneurysm TECHNIQUE: Computed tomographic angiography (CTA) of the chest was performed without and with 100 mL Omnipaque-350 intravenous contrast. Volume-rendered 3D-reconstructions of the aorta and large arterie s were constructed by the technologist on a separate workstation. Automated exposure control and iter ative reconstruction technique were employed. The dose-length product was 170.19 mGy-cm. COMPARISON: None. FINDINGS: Discoid atelectasis at the lingula. Additional small relatively elongated spiculated opacity along th e medial left upper lobe with configuration also favoring atelectasis. No pneumonia, pulmonary edema or pleural effusion. Excellent contrast desiccation of the pulmonary arteries demonstrating no pulmon kavitha embolism. Heart size is normal. No pericardial effusion. Thoracic aorta is normal in caliber with no dissection. No pathologically enlarged thoracic lymphadenopathy. Calcified gallstones within the normal appearing nondilated gallbladder with no wall thickening or pericholecystic infiltrate strandi ng. No intra or extrahepatic biliary ductal dilation. Visualized upper abdomen is otherwise unremarka ble mild thoracic and severe upper lumbar and lower cervical spondylosis. IMPRESSION: 1. Normal caliber thoracic and upper abdominal aorta with no dissection. 2. Elongated spiculated opacity along the medial left upper lobe most likely atelectasis but would re commend 3-6 month follow-up low-dose noncontrast chest CT. Reviewed, dictated and finalized at location A. IMPRESSION: 1. Normal caliber thoracic and upper abdominal aorta with no dissection. 2. Elongated spiculated opacity along the medial left upper lobe most likely at electasis but would recommend 3-6 month follow-up low-dose noncontrast chest CT .
== END 2024-02-14 07:35 | disposition home or self-care (01) ==
PROVIDERS: PCP Family Medicine; Visit Provider Internal Medicine Cardiovascular Disease
DX: Q23.1 Congenital insufficiency of aortic valve (principal)
CPT/HCPCS: 71275; Q9967

== ENCOUNTER 2024-02-28 09:29 | Outpatient (CLI) | payer MEDICARE, SELFPAY ==
[2024-02-28 13:42] LABS: Anion Gap 2 mmol/L (4-12); Blood Urea Nitrogen 20 mg/dL (7-17); Calcium 8.9 mg/dL (8.4-10.2); Carbon Dioxide 31 mmol/L (22-30); Chloride 101 mmol/L (98-107); Estimated Glomerular Filt Rate > 60; Glucose 91 mg/dL (65-110); Potassium 4.3 mmol/L (3.4-5.0); Sodium 134 mmol/L (137-145)
== END 2024-02-28 09:30 | disposition home or self-care (01) ==
LOC: ANHGOSHLAB 09:30
PROVIDERS: PCP Family Medicine; Visit Provider Internal Medicine Cardiovascular Disease
DX: I10 Essential (primary) hypertension (principal)
CPT/HCPCS: 36415; 80048; 83735

== ENCOUNTER 2024-05-17 09:19 | Outpatient (CLI) | payer MEDICARE, SELFPAY ==
--- NOTE | ~2024-05-17 | CT_ITS ---
EXAMINATION:CT diagnostic chest w con DATE: 05/17/2024 09:55 INDICATION: Other nonspecific abnormal finding of lung field. TECHNIQUE: Computed tomography (CT) of the chest was performed with 75 mL Omnipaque 350 intravenous c ontrast. Automated exposure control and iterative reconstruction technique were employed. The dose-le ngth product (DLP) was 150.15 mGy-cm. COMPARISON: Chest CT 02/14/2024 FINDINGS: The lungs demonstrate mild atelectasis. There is a 12 mm part-solid nodule in left upper lo be. No pleural effusion. The heart size is normal. No pericardial effusion. There are gallstones in t he gallbladder, which is normal in size. There is moderate thoracic spondylosis and severe cervical l umbar spondylosis. IMPRESSION: 1. Stable 12 mm part-solid nodule in left lung upper lobe, probably benign. Noncontrast low-dose ches t CT is recommended in 6 months. Reviewed, dictated and finalized at location A. IMPRESSION: 1. Stable 12 mm part-solid nodule in left lung upper lobe, probably benign. Non contrast low-dose chest CT is recommended in 6 months.
[2024-05-17 09:49] LABS: Estimated Glomerular Filt Rate > 60
== END 2024-05-17 09:20 | disposition home or self-care (01) ==
PROVIDERS: PCP Family Medicine; Visit Provider Internal Medicine Cardiovascular Disease
DX: R91.8 Other nonspecific abnormal finding of lung field (principal)
CPT/HCPCS: 71260; Q9967

== ENCOUNTER 2024-06-13 11:28 | Outpatient (CLI) | payer MEDICARE, SELFPAY ==
--- NOTE | ~2024-06-13 | XR_ITS ---
Right Shoulder Technique: AP and scapular Y views were obtained. Clinical History: Other postprocedural state Findings: No fracture or dislocation is seen. Osseous alignment is anatomic. The glenohumeral joint i s intact. Mild AC joint degenerative change. Soft tissues are unremarkable. Impression: Mild AC joint degenerative change. Reviewed, dictated and finalized at location . Impression: Mild AC joint degenerative change.
== END 2024-06-13 11:29 | disposition home or self-care (01) ==
LOC: ANHIMG 11:32
PROVIDERS: PCP Family Medicine; Visit Provider Orthopaedic Surgery
DX: Z98.890 Other specified postprocedural states (principal); M19.011 Primary osteoarthritis, right shoulder
CPT/HCPCS: 73030

== ENCOUNTER 2024-09-24 09:52 | Outpatient (CLI) | payer MEDICARE, SELFPAY ==
--- NOTE | ~2024-09-24 | MM_ITS ---
EXAMINATION: MM screening fortunato BI w milan HISTORY: Screening TECHNIQUE: Craniocaudal and mediolateral oblique 3-D tomosynthesis images were obtained and synthetic 2-D images were generated. CAD analysis was submitted and interpreted. COMPARISON: Comparison to multiple prior studies sequentially, with oldest reviewed study dated 01/21. BREAST PARENCHYMAL COMPOSITION: Dense: The breasts are extremely dense, which lowers the sensitivity of mammography. FINDINGS: There is no evidence of suspicious mass, calcification, or architectural distortion to sugg est malignancy in either breast. There has been no suspicious interval change. IMPRESSION: 1. No mammographic evidence of malignancy. 2. Recommend routine screening mammography in one year. BI-RADS Category 1: Negative Reviewed, dictated and finalized at location A. [employer]
--- OUTSIDE RECORDS SUMMARY | 2024-09-24 10:40 | XMS_ITS | Referral Summary ---
Author Organization [facility] Address [address] [place] [address] Care Team Providers Care Hollock Maker Name Role Phone Vincent Truong MD Primary Care Provider [phone] [facility],non-owned Affiliates and Associated Physician Practices is amultiple site organization consisting of ambulatory clinics and hospital sitesin [place], [place], [place] and [place]. This disclosure is being madepursuant to the Care Everywhere program and may not contain all information available regarding this patient. Last updated 18.[facility] Allergies Active Allergy Reactions Criticality Noted Date Comments Codeine Headache 06/27/2017 Medications * Be aware that medications may not be up to date on this document. Alwaysverify current medications with the patient. Medication Sig Dispensed Refills Start Date End Date Status nebivolol (BYSTOLIC) 10 MG tablet Take 20 mg by mouth once daily Active metFORMIN (GLUCOPHAGE) 500 MG tablet Take 500 mg by mouth once daily Active hydroCHLOROthiazide (MICROZIDE) 12.5 MG capsule Take 12.5 mg by mouth once daily Active lisinopril (PRINIVIL; ZESTRIL) 10 MG tablet Take 10 mg by mouth once daily Active multivitamin daily (THERAGRAN) tablet Take 1 tablet by mouth daily with food Active ascorbic acid (VITAMIN C) 500 MG tablet Take 500 mg by mouth once daily Active riboflavin 100 MG tablet Take 100 mg by mouth once daily Active estrogens, conjugated, (PREMARIN) 0.3 MG tablet Take by mouth once daily Active Interferon Beta-1a (REBIF SC) Active HYDROcodone-acetamino phen (NORCO) 5-325 MG tablet Take 1 tablet by mouth every 4 hours as needed for Pain 10 tablet 06/27/2017 Active ciprofloxacin (CIPRO) 500 MG tablet Take 1 tablet by mouth 2 times daily 10 tablet 06/27/2017 Active Social History Tobacco Use Types Packs/Day Years Used Date Smoking Tobacco: Never Smokeless Tobacco: Never Alcohol Use Standard Drinks/Week Comments Yes 3 (1 standard drink = 0.6 oz pur e alcohol) weekly Sex and Gender Information Value Date Recorded Sex Assigned at Not on file Gender Identity Not on file Sexual Orientation Not on file Last Filed Vital Signs Vital Sign Reading Time Taken Comments Blood Pressure 176/95 06/27/2017 7:40 PM CDT Pulse 94 06/27/2017 7:40 PM CDT Temperature 36.6 ??C (97.9 ??F) 06/27/2017 7:40 PM CD T Respiratory Rate 16 06/27/2017 7:40 PM CDT Oxygen Saturation 97% 06/27/2017 7:40 PM CDT Inhaled Oxygen Concentration - - Weight 64.9 kg (143 lb) 06/27/2017 5:54 PM CDT Height 167.6 cm (5' 6 ) 06/27/2017 5:54 PM CDT Body Mass Index 23.08 06/27/2017 5:54 PM CDT Plan of Treatment Not on file Care Teams Hollock Maker Relationship Specialty Start Date End Date Vincent Truong MD [address] [place] [phone] PCP - General Family Medicine 06/27/17
--- OUTSIDE RECORDS SUMMARY | 2024-09-24 10:40 | XMS_ITS | Clinical Summary ---
Author Organization [facility] Address [address] [place] [address] Phone Care Team Providers Care Data Entry Processor Name Role Phone Vincent Truong MD Primary Care Provider [phone]- [phone] Allergies No known active allergies Medications nebivoloL (BYSTOLIC) 10 mg Tablet Take 20 mg by mouth daily. Active metFORMIN (GLUCOPHAGE) 500 mg tablet Take 500 mg by mouth daily. Active lisinopriL (PRINIVIL) 10 mg tablet Take 10 mg by mouth daily. Active hydroCHLOROthiaz jaspreet (MICROZIDE) 12.5 mg capsule Take 12.5 mg by mouth daily. Active riboflavin, VITAMIN B2, 100 mg Tablet Take 100 mg by mouth daily. Active Active Problems Problem Noted Date Diagnosed Date Protein-calorie malnutrition, moderate Traumatic right-sided intrac erebral hemorrhage without loss of consciousness 04/07/2023 Encounter for Rh blood typing 04/07/2023 History of multiple sclerosis 04/07/[address] of brain 04/07/2023 Abnormal EEG 04/07/2023 Multiple falls 04/07/2023 Ataxic gait determined by examination 04/07/2023 Intracranial hemorrhage foll owing injury, no loss of consciousness, initial encounter 04/06/2023 Hypokalemia 04/06/2023 Hyponatremia 04/06/2023 Hypertensive emergency 04/06/2023 H/O multiple sclerosis 04/06/2023 DM (diabetes mellitus), type 2 04/06/2023 Hypertensive urgency 04/06/2023 Encounters Date Type Department Care Team Description 09/04/2024 External Device Data ST[facility] ABSTRACTION Provider, Abstract from Last 3 Months Family History Medical History Relation Name Comments Hypertension Brother Marfan Syndrome Brother Marfan Syndrome Father Marfan Syndrome Maternal Uncle Marfan Syndrome Paternal Grandmother Relation Name Status Comments Brother Father Maternal Uncle Alive Paternal Grandmother Social History Tobacco Use Types Packs/Day Years Used Date Smoking Tobacco: Never Smokeless Tobacco: Never Tobacco Cessation:Counseling Given: Not Answered Alcohol Use Standard Drinks/Week Comments Yes 0 (1 standard drink = 0.6 oz pur e alcohol) Feeling Safe Answer Date Recorded Are you in a relationship wi th someone who hurts you emotionally and/or physically? 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 Gender Identity Not on file Sexual Orientation Not on file Last Filed Vital Signs Vital Sign Reading Time Taken Comments Blood Pressure 141/74 04/07/2023 4:00 PM CDT Pulse 69 04/07/2023 4:00 PM CDT Temperature 36.9 ??C (98.5 ??F) 04/07/2023 4:00 PM CD T Respiratory Rate 15 04/07/2023 4:00 PM CDT Oxygen Saturation 100% 04/07/2023 4:00 PM CDT Inhaled Oxygen Concentration - - Weight 56.8 kg (125 lb 4.8 oz) 04/07/2023 5:47 A M CDT Height 167.6 cm (5' 6 ) 04/06/2023 4:57 AM CDT Body Mass Index 20.22 04/06/2023 4:57 AM CDT Plan of Treatment Health Maintenance Due Date Last Done Comments DIABETES ANNUAL FOOT EXAM 1974 DIABETES ANNUAL RETINAL EXAM 1974 DIABETES HBA1C Q 6 MONTHS 1974 DIABETES MICROALBUMIN ANNUAL SCREEN 1974 LDL CHOLESTEROL ANNUAL 1974 DTAP/TDAP/TD VACCINES (1 - Tdap) 1975 BREAST CANCER SCREENING 1996 COLORECTAL SCREENING 2001 Colorectal Cancer Screening 2001 FIT-DNA Q 3 years 2001 FIT/FOBT Q 1 year 2001 Flex Sig/CT Colonography Q 5 years 2001 ZOSTER VACCINE (1 of 2) 2006 OSTEOPOROSIS SCREENING 2021 PNEUMOCOCCAL VACCINE 65+ YEA RS (2 of 2 - PPSV23) 12/16/2021 10/21/2021 INFLUENZA VACCINE (#1) 2024 06/13/2020, 2018 RSV VACCINE (60+ or ) (1 - 1-dose 75+ series) 2031 Insurance [facility] [id number] Advance Directives For more information, please contact: [phone] * Full Code (Latest Code Status on File) Date Activated Date Inactivated Comments 04/06/2023 3:43 PM 04/07/2023 8:22 PM * Default Full Code - Needs Discussion Date Activated Date Inactivated Comments 04/06/2023 7:47 AM 04/06/2023 3:43 PM Care Teams Data Entry Processor Relationship Specialty Start Date End Date Vincent Truong MD [address] [place] [address] [phone] PCP - General Family Practice 04/06/23
--- OUTSIDE RECORDS SUMMARY | 2024-09-24 10:40 | XMS_ITS | Referral Summary ---
Author Organization [facility] Address [address] [place] [address] Care Team Providers Care Ammonia Nitrate Operator Name Role Phone Vincent Truong MD Primary Care Provider [phone] Encounters Date Type Department Care Team Description 08/01/2024 Telephone [facility] [address] [place] [address] [place] [address] [phone] Ethel Schmitt RPh 07/20/2024 Telephone [facility] [address] [place] [address] [place] [address] [phone] Ethel Schmitt RPh from Last 3 Months Allergies Active Allergy Reactions Criticality Noted Date Comments Codeine Headache Low Medications B-complex with vitamin C (SUPER B COMPLEX-VITAMIN C) tablet 0 3 Active ascorbic acid (vitamin C) 100 mg tablet Take as directed 0 3 Active Additional Information Patient taking differently: 1,000 mg Daily, Reported on 04/11/2023 multivit-minera z-oepn-hdmcsk (CENTRUM SILVER ULTRA WOMEN'S) tablet Take as directed 0 3 Active calcium citrate-vitamin D3 (CITRACAL + D MAXIMUM) 315-250 mg-unit per tablet 0 3 Active nebivolol (BYSTOLIC) 20 mg tablet take 1 tablet by oral route every day 0 0 3 Active cholecalciferol (VITAMIN D3) 2,000 unit tablet take 1 tablet by oral route every day 0 0 4 Active metFORMIN XR (GLUCOPHAGE XR) 500 mg 24 hr tablet take 1 tablet by oral route every day with the evening meal 0 0 5 Active Additional Information Patient not taking.Reported on 04/12/2024 aspirin 81 mg tablet take 1 tablet (81MG) by oral route every day 30 6 1 Active miscellaneous medical supply [facility] REBIJECT II AUTOINJECTOR 1 each 1 9 Active NOT IN DATABASE, PRESCRIPTION, RebiJect device. Use as directed. 1 each 1 Active irbesartan (AVAPRO) 300 mg tablet 3 Active amLODIPine (NORVASC) 5 mg tablet Take 1 tablet (5 mg total) by mouth daily 4 Active interferon beta-1a (Rebif, with albumin,) 44 mcg/0.5 mL injectionIndica tions:relapsing form of multiple sclerosis Inject 0.5 mL (44 mcg total) under the skin 3 (three) times a week 6 mL 11 4 07/20/20 25 Active Active Problems Problem Noted Date Diagnosed Date Cerebral cavernoma 04/12/2023 Assessment & Plan (04/12/2024 8:36 PM CDT): Possible right centrum semiovale cavernoma versus focal hemorrhage on CT and MRI imaging Another susceptibility weighted imaging abnormality in the right side of the splenium of the corpus callosum could be a separate cavernoma. CT angio April 06, 2023: No aneurysm or vascular malformation Assessment & Plan (10/12/2023 6:49 AM VALET PARKING ATTENDANT): Possible right centrum semiovale cavernoma versus focal hemorrhage on CT and MRI imaging Another susceptibility weighted imaging abnormality in the right side of the splenium of the corpus callosum could be a separate cavernoma. CT angio April 06, 2023: No aneurysm or vascular malformation Assessment & Plan (04/12/2023 8:40 AM CDT): Possible right centrum semiovale cavernoma versus focal hemorrhage on CT scan from April 06, 2023. CT angio April 06, 2023: No aneurysm or vascular malformation Facial contusion/lip laceration from fall April 06, 2023 Essential hypertension 06/19/2021 Assessment & Plan (04/12/2024 8:39 PM CDT): Persistent hypertension: Blood pressure 170/82 Prompt cardiology follow-up.. On amlodipine 5 mg, nebivolol 20 mg and irbesartan 300 mg daily. Evaluation with hypertension specialist Dr. Darlyn Adams recommended. Assessment & Plan (06/19/2021 7:51 AM CDT): Systolic blood pressure greater than 190 on arrival to exam room. Repeat blood pressure 168/92. Prompt follow-up with PCP. Option of seeing a hypertension specialist or engraving patternmaker discussed. 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/03/2016): Anti-cardiolipin antibody positive Assessment & Plan (04/12/2024 8:36 PM CDT): 02/12/10 anticardiolipin IgG 39.2 (0.0-10.9) Aspirin 81 mg daily Assessment & Plan (10/12/2023 6:51 AM VALET PARKING ATTENDANT): 02/12/10 anticardiolipin IgG 39.2 (0.0-10.9) Aspirin 81 mg daily Assessment & Plan (04/12/2023 8:33 AM CDT): Aspirin 81 mg daily Assessment & Plan (09/02/2022 5:36 PM VALET PARKING ATTENDANT): Aspirin 81 mg daily Assessment & Plan (02/26/2022 5:03 PM CDT): Aspirin 81 mg daily Assessment & Plan (06/19/2021 7:50 AM CDT): Aspirin 81 mg daily Can hold for 8 days for right shoulder surgery. Assessment & Plan (11/27/2020 5:27 PM CDT): Aspirin 81 mg daily Assessment & Plan (12/21/2019 1:23 PM CDT): ASA 81mg daily Assessment & Plan (06/13/2019 1:07 PM CDT): Aspirin 81 mg daily Assessment & Plan (09/12/2018 1:42 PM VALET PARKING ATTENDANT): Aspirin 81 mg daily Assessment & Plan (12/19/2017 4:44 PM CDT): Aspirin 81 mg daily Assessment & Plan (06/15/2017 2:11 PM CDT): Aspirin 81 mg daily Multiple sclerosis 04/05/2013 Overview (03/06/2018): MULTIPLE SCLEROSIS Rebif 02/2010 - present Assessment & Plan (04/12/2024 8:36 PM CDT): Diagnosed in 2009 with enhancing lesion and positive spinal fluid Rebif. Rebiject 2. Risks discussed including lymphocytopenia and hepatotoxicity. COVID-19 pandemic discussed. Her last COVID-19 vaccine was July 2023. Paxlovid advised if she develops COVID-19. Previously discussed alternative treatment options including Mavenclad and dimethyl fumarate. Continue vitamin D3 2000 IU daily Continue walking regularly MRI scan of the cervical spinal cord normal October 2018 per my review. Follow-up MRI scan of the brain without contrast March 2025 Assessment & Plan (10/12/2023 6:47 AM VALET PARKING ATTENDANT): Diagnosed in 2009 with enhancing lesion and positive spinal fluid Rebif. Rebiject 2. Risks discussed including lymphocytopenia and hepatotoxicity. COVID-19 pandemic discussed. Her last COVID-19 vaccine was July 2023. Paxlovid advised if she develops COVID-19. Previously discussed alternative treatment options including Mavenclad and dimethyl fumarate. Con't Vit D3 2000 IU daily Exercise encouraged MRI scan of the cervical spinal cord normal October 2018 per my review. Assessment & Plan (04/12/2023 8:38 AM CDT): Diagnosed in 2009 with enhancing lesion and positive spinal fluid Rebif. Rebiject 2. Risks discussed including lymphocytopenia and hepatotoxicity. COVID-19 pandemic discussed. Received her 5th Pfizer COVID-19 vaccine on July 08, 2022. Booster vaccination advised. Paxlovid advised if she develops COVID-19. Previously discussed alternative treatment options including Mavenclad and dimethyl fumarate. Con't Vit D3 2000 IU daily Exercise encouraged MRI scan of the cervical spinal cord normal October 2018 per my review. Will repeat sodium level since hyponatremia to 129 on April 07, 2023 Assessment & Plan (09/02/2022 5:36 PM VALET PARKING ATTENDANT): Diagnosed in 2009 with enhancing lesion and positive spinal fluid Rebif. Rebiject 2. Risks discussed including lymphocytopenia and hepatotoxicity. Patient assistance findings discussed to help with co-pay coverage. COVID-19 pandemic discussed. Received her 5th Pfizer COVID-19 vaccine on July 08, 2022. Paxlovid advised if she develops COVID-19. Previously discussed alternative treatment options including Mavenclad and dimethyl fumarate. Con't Vit D3 2000 IU daily Exercise encouraged MRI scan of the cervical spinal cord normal October 2018 per my review. MRI brain without contrast June 2023 Assessment & Plan (02/26/2022 5:02 PM CDT): Diagnosed in 2009 with enhancing lesion and positive spinal fluid Rebif. Rebiject 2. Risks discussed including lymphocytopenia and hepatotoxicity. Patient assistance findings discussed to help with co-pay coverage. COVID-19 pandemic discussed. Received her 3rd COVID-19 mRNA vaccine on June 22, 2021. Booster vaccination recommended. Paxlovid advised if she develops COVID- 19. Previously discussed alternative treatment options including Mavenclad and dimethyl fumarate. Con't Vit D3 2000 IU daily Exercise encouraged MRI scan of the cervical spinal cord normal October 2018 per my review. Assessment & Plan (06/19/2021 7:50 AM CDT): Diagnosed in 2009 with enhancing lesion and positive spinal fluid Rebif. Rebiject 2. Risks discussed including lymphocytopenia and hepatotoxicity. COVID-19 pandemic discussed. 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 Received her 2nd COVID-19 mRNA vaccine on December 04, 2020. Booster vaccination discussed. Previously discussed alternative treatment options including Mavenclad and dimethyl fumarate. Con't Vit D3 2000 IU daily Exercise encouraged Due for a follow-up MRI scan of the brain, but patient wants to defer for 1 year until on Medicare. Last MRI scan of the brain unchanged on November 07, 2018. MRI scan of the cervical spinal cord normal October 2018 per my review. Assessment & Plan (11/27/2020 5:27 PM CDT): Diagnosed in 2009 with enhancing lesion and positive spinal fluid Rebif. Rebiject 2. Risks discussed including hepatotoxicity. Alternative treatment options discussed including dimethyl fumarate and Mavenclad. The benefits and risks of Mavenclad were discussed including leukopenia, serious infections including PML, liver injury, potential malignancy and even . Risks and benefits of dimethyl fumarate discussed including flushing, n/v/d, hepatotoxicity, low white blood cell count, and serious infection including PML. COVID-19 pandemic discussed. 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 Scheduled for 2nd COVID-19 mRNA vaccine on December 04, 2020. Con't Vit D3 2000 IU daily Exercise encouraged Due for a follow-up MRI scan of the brain, but patient wants to defer for 1 year until on Medicare. Last MRI scan of the brain unchanged on November 07, 2018. MRI scan of the cervical spinal cord normal October 2018 per my review. Assessment & Plan (12/21/2019 1:22 PM CDT): Rebif, Rebiject TIW. Discussed risks including infections and injection site reactions. Continue exercise Continue Vitamin D Blood work orders mailed MRI of the brain in Spring [address] Alexandre in 6 months Assessment & Plan (06/13/2019 1:07 PM CDT): Diagnosed in 2009 with enhancing lesion and positive spinal fluid Rebif. Rebiject 2. Risks discussed including hepatotoxicity. Alternative treatment options discussed including Aubagio and Ocrevus. Risks and benefits of Aubagio discussed including low white count/potential serious infection, hypertension, hepatotoxicity, alopecia and diarrhea. Con't Vit D3 2000 IU daily Continue exercise: yoga recommended. Requested recent labs from Dr. Vincent Truong. Assessment & Plan (09/12/2018 1:43 PM VALET PARKING ATTENDANT): Diagnosed in 2009 with enhancing lesion and positive spinal fluid Rebif. Rebiject 2. Risks discussed including hepatotoxicity Con't Vit D3 2000 IU daily Continue exercises Declined oral DMTs. Monoclonal antibodies discussed at appointment. MRI of the brain and cervical spine in October 2018 at [facility] on the 3 [address]. Patient will bring prior MRI scan of the brain from [facility] for comparison. No prior cervical spinal cord imaging in the past. Continue exercise: yoga recommended. Adherence to labs. Not done as ordered after last appointment. Safety monitoring with routine labs explained. Assessment & Plan (12/19/2017 4:45 PM CDT): Diagnosed in 2009. Rebif. Rebiject 2. Risks discussed including hepatotoxicity Con't Vit D3 2000 IU daily Continue exercises Declined oral DMTs. MRI of the brain and cervical spine in October of 2018 Assessment & Plan (06/15/2017 2:10 PM CDT): Rebif. Rebiject 2. Risks discussed including hepatotoxicity Con't Vit D3 2000 IU daily Exercise encouraged. Declined oral DMTs. Resolved Problems Problem Noted Date Diagnosed Date Resolved Date Neurogenic bladder 12/19/2017 9 Assessment & Plan (12/19/2017 4:46 PM CDT): Recurrent urinary tract infections No bladder urgency or urinary retention symptoms otherwise Urology referral Immunizations Name Administration Dates Next Due Influenza, Quadrivalent, Rec ombinant, Egg Free, Preservative Free, Intramuscular 06/11/2019 Influenza, Quadrivalent, Spl it, Preservative Free, Intramuscular 06/13/2020 Pneumococcal Conjugate PCV 13 10/21/2021 Social History Tobacco Use Types Packs/Day Years Used Date Smoking Tobacco: Never Smokeless Tobacco: Never Tobacco Cessation:Counseling Given: Not Answered Alcohol Use Standard Drinks/Week Comments Yes 0 (1 standard drink = 0.6 oz pur e alcohol) AUDIT-C Answer Date Recorded Q1: How often do you have a drink containing alc ohol? Monthly or less 11/27/2020 Average Number of Drinks Not on file 021 Frequency of Binge Drinking Not on file 08/2020 Comments Unknown Sex and Gender Information Value Date Recorded Sex Assigned at Not on file Legal Sex Female 10:56 AM VALET PARKING ATTENDANT Gender Identity Not on file Sexual Orientation Not on file Last Filed Vital Signs Vital Sign Reading Time Taken Comments Blood Pressure 178/82 04/12/2024 1:05 PM CDT Pulse 68 04/12/2024 1:05 PM CDT Temperature 36.7 ??C (98 ??F) 04/11/2023 11:18 AM CDT Respiratory Rate 16 11/27/2020 1:47 PM CDT Oxygen Saturation 97% 04/12/2024 1:05 PM CDT Inhaled Oxygen Concentration - - Weight 56.4 kg (124 lb 6.4 oz) 04/12/2024 1:05 P M CDT Height 167.6 cm (5' 6 ) 04/12/2024 1:05 PM CDT Body Mass Index 20.08 04/12/2024 1:05 PM CDT Plan of Treatment Not on file Insurance MEDICARE SOLUTIONS [facility] [employer] [facility] [id number] [facility] H[facility]/PPO Address: [address] [id number] MEDICARE SOLUTIONS Care Teams Ammonia Nitrate Operator Relationship Specialty Start Date End Date Vicnent Truong MD PCP - General 11/26/16
--- OUTSIDE RECORDS SUMMARY | 2024-09-24 10:40 | XMS_ITS | Patient Health Summary ---
Author Organization [facility] Address [address] [place] [address] Care Team Providers Care Retail Operations Manager Name Role Phone Vincent Truong MD Primary Care Provider [phone] Note from [facility],non-owned Affiliates and Associated Physician Practices is amultiple site organization consisting of ambulatory clinics and hospital sitesin [place], [place], [place] and [place]. This disclosure is being madepursuant to the Care Everywhere program and may not contain all information available regarding this patient. Last updated 18.[facility] Allergies * Codeine(Headache) Medications * Be aware that medications may not be up to date on this document. Alwaysverify current medications with the patient. * nebivolol (BYSTOLIC) 10 MG tablet Take 20 mg by mouth once daily * metFORMIN (GLUCOPHAGE) 500 MG tablet Take 500 mg by mouth once daily * hydroCHLOROthiazide (MICROZIDE) 12.5 MG capsule Take 12.5 mg by mouth once daily * lisinopril (PRINIVIL; ZESTRIL) 10 MG tablet Take 10 mg by mouth once daily * multivitamin daily (THERAGRAN) tablet Take 1 tablet by mouth daily with food * ascorbic acid (VITAMIN C) 500 MG tablet Take 500 mg by mouth once daily * riboflavin 100 MG tablet Take 100 mg by mouth once daily * estrogens, conjugated, (PREMARIN) 0.3 MG tablet Take by mouth once daily * Interferon Beta-1a (REBIF SC) * HYDROcodone-acetaminophen (NORCO) 5-325 MG tablet(Started 06/27/2017) Take 1 tablet by mouth every 4 hours as needed for Pain * ciprofloxacin (CIPRO) 500 MG tablet(Started 06/27/2017) Take 1 tablet by mouth 2 times daily Social History Tobacco Use Types Packs/Day Years [...] Mass Index 23.08 06/27/2017 5:54 PM CDT Procedures * CARDIAC EKG ORDER(Performed 06/29/2017) * CT HEAD WO CONTRAST(Performed 06/27/2017) Performed for Fall, initial encounter, Injury of head, initial encounter, MS (multiple sclerosis) ([facility]) * EKG 12-LEAD(Performed 06/27/2017) Performed for Fall, initial encounter, Injury of head, initial encounter, MS (multiple sclerosis) ([facility]) * URINE DRUG SCREEN IMMUNOASSAY(Performed 06/27/2017) * URINE MICROSCOPIC ONLY REFLEX TO CULTURE(Performed 06/27/2017) * ALCOHOL ETHYL BLOOD(Performed 06/27/2017) * COMPREHENSIVE METABOLIC PANEL(Performed 06/27/2017) * CBC W AUTO DIFFERENTIAL(Performed 06/27/2017) * URINALYSIS REFLEX MICROSCOPIC REFLEX CULTURE(Performed 06/27/2017) * CULTURE URINE(Performed 06/27/2017) Results * CARDIAC EKG ORDER (06/29/2017 1:42 AM CDT) Narrative 06/29/2017 1:42 AM CDT Ordered by an unspecified provider. Scanned Document CARDIAC SERVICES ORD ERABLES * CT HEAD NON CONTRAST (06/27/2017 6:52 PM CDT) Anatomical Region Laterality Modality Head Computed Tomogra phy 06/27/2017 6:58 PM CDT Impressions 06/27/2017 7:01 PM CDT No significant findings. Narrative 06/27/2017 7:[address] brain, noncontrast DATE: 06/27/2017 INDICATION: Fall, head injury TECHNIQUE: Multidetector nonenhanced CT through the brain. FINDINGS: There is minimal periventricular microangiopathy. There is no extra-axial fluid collection, mass effect, midline shift or hydrocephalus. There is no acute or chronic hemorrhage. No CT evidence for acute ischemia is present. The left lateral ventricle is asymmetrically larger on the right. This appears to be due to incidental differences in the volume of white matter in the left hemisphere. The visualized paranasal sinuses and mastoid air-cells are clear. Procedure Note Francisco Iniguez MD - 06/27/2017 CT brain, noncontrast DATE: 06/27/2017 INDICATION: Fall, head injury TECHNIQUE: Multidetector nonenhanced CT through the brain. FINDINGS: There is minimal periventricular microangiopathy. There is no extra-axial fluid collection, mass effect, midline shift or hydrocephalus. There is no acute or chronic hemorrhage. No CT evidence for acute ischemia is present. The left lateral ventricle is asymmetrically larger on the right. This appears to be due to incidental differences in the volume of white matter in the left hemisphere. The visualized paranasal sinuses and mastoid air-cells are clear. IMPRESSION No significant findings. Hoa Taylor MD CT ORDERABLES * EKG 12-LEAD (06/27/2017 6:44 PM CDT) Ventricular Rate 63 BPM [facility] Atrial Rate 63 BPM [facility] P-R Interval 128 ms [facility] QRS Duration ms 76 ms [facility] Q-T Interval ms 390 ms [facility] QTC Calculation (Bezet) 399 ms [facility] Calculated P Idamay 21 degrees [facility] Calculated R Idamay -4 degrees [facility] Calculated T Idamay 17 degrees [facility] Interpretation EKG NORMAL SINUS RHYTHM SEPTAL INFARCT , AGE UNDETERMINED ABNORMAL ECG NO PREVIOUS ECGS AVAILABLE Confirmed by MD SCOTT, JADEN Bravo ([id number]) on 06/28/2017 7:59:[address] [facility] 06/27/2017 6:44 PM CDT 06/28/2017 7:59 AM CDT Hoa Taylor MD ECG ORDERABLES [facility] * DRUG SCREEN TOX URINE PANEL (06/27/2017 6:24 PM CDT) [facility] Amphetamines Screen Urine Not Detected Not Detected 06/27/2017 6:[address] [facility] Barbiturates Screen Urine Not Detected Not Detected 06/27/2017 6:[address] [facility] Benzodiazepines Screen Urine Not Detected Not Detected 06/27/2017 6:[address] [facility] Cannabinoids Screen Urine Not Detected Not Detected 06/27/2017 6:[address] [facility] Cocaine Screen Urine Not Detected Not Detected 06/27/2017 6:[address] [facility] Methadone Screen Urine Not Detected Not Detected 06/27/2017 6:[address] [facility] Opiate Screen Urine Not Detected Not Detected 06/27/2017 6:[address] [facility] Phencyclidine Screen Urine Not Detected Not Detected 06/27/2017 6:[address] [facility] Urine URINE / Unknown Collection / Unknown 06/27/2017 6:24 PM CDT 06/27/2017 6:[address] [facility] - 06/27/2017 6:44 PM CDT This drug screen is designed for MEDICAL purposes only. It is not to be used for legal purposes, including but not limited to worker's comp, police investigations, occupational issues, child custody, etc. ??Any positive result is only presumptive and must be confirmed with a separate confirmatory test ordered by the physician. Drug Screening Test Cutoff Values: AMPHETAMINES ?1000 ng/mL BARBITURATES ? 200 ng/mL BENZODIAZEPINES ??200 ng/mL CANNABINOIDS(THC) 50 ng/mL COCAINE ?300 ng/mL METHADONE ?300 ng/mL OPIATES ?300 ng/mL PHENCYCLIDINE(PCP)25 ng/mL Hoa Taylor MD LAB - URINE CHEMISTR Y ORDERABLES Performing Organization Address [facility] de Phone Number [facility] [address] [phone] * (ABNORMAL) URINALYSIS MICROSCOPIC ONLY W/REFLEX CULTURE (06/27/2017 6:23 PM CDT) RBC UA 0-2 0-2, 2-5 # /hpf 06/27/2017 6:[address] [facility] WBC UA 20-50(A) 0-2, 2-5 # /hpf 06/27/2017 6:[address] [facility] Bacteria UA 4+(A) None Seen 06/27/2017 6:[address] [facility] Epithelial Cell UA 5-10(A) 0-2, 2-5 # /hpf 06/27/2017 6:[address] [facility] Hyaline Casts 0-2 0 - 2 # /lpf 06/27/2017 6:[address] [facility] Reflex Status Culture to follow 06/27/2017 6:[address] [facility] Urine URINE SPECIMEN OBTAINED BY CLEAN CATCH PROCEDURE / Unknown Collection / Unknown 06/27/2017 6:23 PM CDT 06/27/2017 6:33 PM CDT Hoa Taylor MD LAB - URINALYSIS ORD ERABLES Performing Organization Address [facility] de Phone Number [facility] [address] [place] [address] * (ABNORMAL) URINALYSIS ROUTINE W/REFLEX TO CULTURE (06/27/2017 6:23 PM CDT) Color UA Yellow Straw, Yellow, Dark Yellow 06/27/2017 6:[address] [facility] Clarity UA Cloudy 06/27/2017 6:[address] [facility] Specific [place] UA 1.009 1.005 - 1.030 06/27/2017 6:[address] [facility] pH UA 7.0 5.0 - 8.0 pH 06/27/2017 6:[address] [facility] Protein UA Negative Negative 06/27/2017 6:[address] [facility] Blood UA Negative Negative 06/27/2017 6:[address] [facility] Leukocyte UA 3+(A) Negative 06/27/2017 6:[address] [facility] Nitrite UA Positive(A) Negative 06/27/2017 6:[address] [facility] Glucose UA Negative Negative 06/27/2017 6:[address] [facility] Ketone UA Negative Negative 06/27/2017 6:[address] [facility] Bilirubin UA Negative Negative 06/27/2017 6:[address] [facility] Urobilinogen UA 0.2 0.1 - 1.0 EU/dL 06/27/2017 6:[address] [facility] WBC UA Auto 50-100(A) 0-2, 2-5 # /hpf 06/27/2017 6:[address] [facility] RBC UA Auto 2-5 0-2, 2-5 # /hpf 06/27/2017 6:[address] [facility] Epithelial Cell UA Auto 0-2 0-2, 2-5 # /hpf 06/27/2017 6:[address] [facility] Bacteria UA Auto Reflex to manual(A) None seen 06/27/2017 6:[address] [facility] Reflex Status Culture to follow 06/27/2017 6:[address] [facility] Urine URINE SPECIMEN OBTAINED BY CLEAN CATCH PROCEDURE / Unknown Collection / Unknown 06/27/2017 6:23 PM CDT 06/27/2017 6:33 PM CDT Hoa Taylor MD LAB - URINALYSIS ORD ERABLES [facility] [address] [place] [address] * (ABNORMAL) CULTURE URINE (06/27/2017 6:23 PM CDT) Culture Urine >100,000 CFU/mL Escherichia coli(A) VIRIDIANA 06/29/2017 8:51 AM CDT [facility] Culture Urine 10,000-50,000 CFU/mL urogenital parth VIRIDIANA 06/29/2017 8:51 AM CDT [facility] Urine URINE SPECIMEN OBTAINED BY CLEAN CATCH PROCEDURE / Unknown Collection / Unknown 06/27/2017 6:23 PM CDT 06/27/2017 6:33 PM CDT Narrative Organism Antibiotic Method Susceptibility Escherichia coli Amikacin VIRIDIANA <=2 ug/mL: Susceptible Escherichia coli Ampicillin VIRIDIANA >=32 ug/mL: Resistant Escherichia coli Ampicillin-sulbactam VIRIDIANA >=32 ug/mL: Resistant Escherichia coli Cefazolin VIRIDIANA >=64 ug/mL: Resistant Escherichia coli Cefepime VIRIDIANA <=1 ug/mL: Susceptible Escherichia coli Ceftriaxone VIRIDIANA <=1 ug/mL: Susceptible Escherichia coli Ciprofloxacin VIRIDIANA >=4 ug/mL: Resistant Escherichia coli Extended-Spectrum Beta-Lactamase VIRIDIANA NEG ug/mL: Neg Escherichia coli Gentamicin VIRIDIANA <=1 ug/mL: Susceptible Escherichia coli Meropenem VIRIDIANA <=0.25 ug/mL: Susceptible Escherichia coli Nitrofurantoin VIRIDIANA <=16 ug/mL: Susceptible Escherichia coli Piperacillin-tazobactam VIRIDIANA 8 ug/mL: Susceptible Escherichia coli Tobramycin VIRIDIANA <=1 ug/mL: Susceptible Escherichia coli Trimethoprim-sulfamethoxazole VIRIDIANA >=320 ug/mL: Resistant Hoa Taylor MD LAB - MICROBIOLOGY O RDERABLES [facility] [address] [place], [place] [address], [facility] [phone] * (ABNORMAL) CBC W AUTO DIFFERENTIAL (06/27/2017 6:23 PM CDT) WBC 3.7(L) 4.4 - 10.7 x10E9/L 06/27/2017 6:36 PM CDT [facility] WBC Corrected x10E9/L 06/27/2017 6:36 PM CDT [facility] RBC 4.12 3.80 - 5.20 x10E12/L 06/27/2017 6:36 PM CDT [facility] Hemoglobin 12.8 12.0 - 15.6 gm/dL 06/27/2017 6:[address] [facility] Hematocrit 38.0 35.9 - 45.5 % 06/27/2017 6:[address] [facility] MCV 92.2 80.7 - 98.3 fl 06/27/2017 6:[address] [facility] MCH 31.1 26.7 - 34.0 pg 06/27/2017 6:[address] [facility] MCHC 33.7 30.8 - 35.9 gm/dL 06/27/2017 6:36 PM [facility] Platelet Count 213 153 - 416 x10E9/L 06/27/2017 6:[address] [facility] RDW-CV 12.4 12.1 - 14.9 % 06/27/2017 6:[address] [facility] MPV 10.8 9.4 - 12.9 fl 06/27/2017 6:[address] [facility] Neutrophils % 47.2 44.0 - 73.0 % 06/27/2017 6:[address] [facility] Lymphocytes % 34.3 20.0 - 43.0 % 06/27/2017 6:[address] [facility] Monocytes % 15.8(H) 5.0 - 13.0 % 06/27/2017 6:[address] [facility] Eosinophils % 1.6 0.0 - 6.0 % 06/27/2017 6:[address] [facility] Basophils % 0.8 0.0 - 2.0 % 06/27/2017 6:[address] [facility] Immature Granulocytes 0.3 0 - 1 % 06/27/2017 6:[address] [facility] Neutrophil Absolute 1.76(L) 2.01 - 7.14 x10E9/L 06/27/2017 6:[address] [facility] Lymphocytes Absolute 1.28 1.07 - 3.94 x10E9/L 06/27/2017 6:[address] [facility] Monocytes Absolute 0.59 0.26 - 1.07 x10E9/L 06/27/2017 6:[address] [facility] Eosinophils Absolute 0.06 0 - 0.47 x10E9/L 06/27/2017 6:[address] [facility] Basophils Absolute 0.03 0 - 0.08 x10E9/L 06/27/2017 6:[address] [facility] Immature Granulocytes Absolute 0.01 0.00 - 0.06 x10E9/L 06/27/2017 6:[address] [facility] nRBC Auto 0 /100 WBC 06/27/2017 6:[address] [facility] Blood BLOOD SPECIMEN / Unknown Venipuncture / Unknown 06/27/2017 6:23 PM CDT 06/27/2017 6:33 PM CDT Hoa Taylor MD LAB - HEMATOLOGY ORD ERABLES [facility] [address] [place] [address] * (ABNORMAL) COMPREHENSIVE METABOLIC PANEL (06/27/2017 6:23 PM CDT) Glucose 114(H) 74 - 106 mg/dL 06/27/2017 6:[address] [facility] Sodium 137 136 - 145 mmol/L 06/27/2017 6:[address] [facility] Potassium 3.3(L) 3.5 - 5.1 mmol/L 06/27/2017 6:[address] [facility] Chloride 102 98 - 107 mmol/L 06/27/2017 6:[address] [facility] CO2 29 22 - 31 mmol/L 06/27/2017 6:[address] [facility] Calcium 8.5 8.5 - 10.1 mg/dL 06/27/2017 6:[address] [facility] Anion Gap 6(L) 8 - 16 mmol/L 06/27/2017 6:[address] [facility] BUN 12 7 - 21 mg/dL 06/27/2017 6:[address] [facility] Creatinine 0.56 0.50 - 1.30 mg/dL 06/27/2017 6:[address] [facility] Alkaline Phosphatase 63 38 - 126 U/L 06/27/2017 6:[address] [facility] ALT 28 13 - 61 U/L 06/27/2017 6:[address] [facility] AST 17 5 - 40 U/L 06/27/2017 6:[address] [facility] Protein Total 6.9 6.4 - 8.2 gm/dL 06/27/2017 6:[address] [facility] Albumin 3.6 3.4 - 5.0 gm/dL 06/27/2017 6:[address] [facility] Bilirubin Total 0.4 0.2 - 1.0 mg/dL 06/27/2017 6:[address] [facility] eGFR by MDRD >60 >60 mL/min/1.7 3m2 06/27/2017 6:51 PM CDT [facility] eGFR by MDRD >60 >60 mL/min/1.7 3m2 06/27/2017 6:[address] [facility] Blood BLOOD SPECIMEN / Unknown Venipuncture / Unknown 06/27/2017 6:23 PM CDT 06/27/2017 6:33 PM CDT Hoa Taylor MD LAB - CHEMISTRY SARI FERREIRA Performing Organization Address City/[facility] Co de Phone Number [facility] [address] [place] [address] * ALCOHOL ETHYL BLOOD (06/27/2017 6:23 PM CDT) Ethanol <10 <10 mg/dL 06/27/2017 6:[address] [facility] Ethanol Calculated <0.010 <0.100 gm/dL 06/27/2017 6:[address] [facility] Blood BLOOD SPECIMEN / Unknown Venipuncture / Unknown 06/27/2017 6:23 PM CDT 06/27/2017 6:[address] [facility] - 06/27/2017 6:51 PM CDT Non Legal Serum Alcohol Hoa Taylor MD LAB - CHEMISTRY SARI FERREIRA Performing Organization Address City/[facility]/ZIP Co de Phone Number [facility] [address] [place] [address] Care Teams Retail Operations Manager Relationship Specialty Start Date End Date Vincent Truong MD [address] [place] [phone] PCP - General Family Medicine 06/27/17
--- OUTSIDE RECORDS SUMMARY | 2024-09-24 10:40 | XMS_ITS | Clinical Summary ---
Author Organization [facility] Address [address] [place] [address] Care Team Providers Care Press Offbearer Name Role Phone Vincent Truong MD Primary Care Provider [phone] Allergies Active Allergy Reactions Criticality Noted Date Comments Codeine Headache Low Medications B-complex with vitamin C (SUPER B COMPLEX-VITAMIN C) tablet 0 3 Active ascorbic acid (vitamin C) 100 mg tablet Take as directed 0 3 Active Additional Information Patient taking differently: 1,000 mg Daily, Reported on 04/11/2023 multivit-minera r-aqpx-idobmp (CENTRUM SILVER ULTRA WOMEN'S) tablet Take as [...] 30 6 1 Active miscellaneous medical supply [facility] REBIJECT II AUTOINJECTOR 1 each 1 9 [...] malformation Assessment & Plan (10/12/2023 6:49 AM [employer]): 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/03/2016): Anti-cardiolipin antibody positive Assessment & Plan (04/12/2024 8:36 PM CDT): 02/12/10 anticardiolipin IgG 39.2 (0.0-10.9) Aspirin 81 mg daily Assessment & Plan (10/12/2023 6:51 AM [employer]): 02/12/10 anticardiolipin IgG 39.2 (0.0-10.9) Aspirin 81 mg daily Assessment & Plan (04/12/2023 8:33 AM CDT): Aspirin 81 mg daily Assessment & Plan (09/02/2022 5:36 PM [employer]): Aspirin 81 mg daily Assessment & Plan [...] daily Assessment & Plan (09/12/2018 1:42 PM [employer]): Aspirin 81 mg daily Assessment & Plan [...] 2025 Assessment & Plan (10/12/2023 6:47 AM [employer]): Diagnosed in 2009 with enhancing lesion and [...] 2023 Assessment & Plan (09/02/2022 5:36 PM [employer]): Diagnosed in 2009 with enhancing lesion and [...] Truong. Assessment & Plan (09/12/2018 1:43 PM [employer]): Diagnosed in 2009 with enhancing lesion and positive spinal fluid Rebif. Rebiject 2. Risks discussed including hepatotoxicity Con't Vit D3 2000 IU daily Continue exercises Declined oral DMTs. Monoclonal antibodies discussed at appointment. MRI of the brain and cervical spine in October 2018 at [facility] on the [address]. Patient will bring prior MRI scan of the brain from [facility] for comparison. No prior cervical spinal [...] or urinary retention symptoms otherwise Urology referral Encounters Date Type Department Care Team Description 08/01/2024 Telephone [facility] [address] [place] [phone] Ethel Schmitt RPh 07/20/2024 Telephone [facility] [address] [place] [address] [place] [phone] Ethel Schmitt RPh from Last 3 Months Immunizations Name Administration Dates Next Due Influenza, Quadrivalent, Rec ombinant, Egg Free, Preservative Free, Intramuscular 06/11/2019 Influenza, Quadrivalent, Spl it, Preservative Free, Intramuscular 06/13/2020 Pneumococcal Conjugate PCV 13 10/21/2021 Family History Medical History Relation Name Comments Other Father Unknown; Stroke Mother Stroke; Relation Name Status Comments Father Mother Social History Tobacco Use Types Packs/Day Years [...] on file Legal Sex Female 10:56 AM [employer] Gender Identity Not on file Sexual Orientation Not on file Obstetrics History Last Filed Vital Signs Vital Sign Reading [...] 04/12/2024 1:05 PM CDT Plan of Treatment Health Maintenance Due Date Last Done Comments Breast Cancer Screening-Mammogram 1955 Colon Cancer Screening-Colonoscopy 1956 Depression Screening 1956 Fall Risk Assessment 1956 Hepatitis C Screening 1956 Osteoporosis Screening-Bone Density Scan 1956 DTaP/Tdap/Td Vaccine (1 - Tdap) 1967 Hepatitis B Screening 1974 Zoster Vaccine (1 of 2) 2006 Well Visit 65+ 2021 Pneumococcal vaccine 65+ (2 of 2 - PPSV23 or PCV20) 10/21/2022 10/21/2021 Covid-19 Vaccine (2023-2 5 season) 2024 07/08/2022, 03/21/2022, 06/22/2021, Additional history exists Influenza Vaccine (#1) 2024 06/13/2020, 2018 Insurance [employer] [facility] Address: [address] [address] [place] [address] [facility] [id number] [employer]ARE SOL[employer] Care Teams Press Offbearer Relationship Specialty Start Date End Date Vincent Truong MD PCP - General 11/26/16
--- OUTSIDE RECORDS SUMMARY | 2024-09-24 10:40 | XMS_ITS | Clinical Summary ---
Author Organization [facility] Address [address] [place] [address] Care Team Providers Care Radiology Physician Assistant Name Role Phone Vincent Truong MD Primary Care Provider [phone]- [phone] Source Comments [facility],non-owned Affiliates and Associated Physician Practices is amultiple site organization consisting of ambulatory clinics and hospital sitesin [place], [place], [place] and [place]. This disclosure is being madepursuant to the Care Everywhere program and may not contain all information available regarding this patient. Last updated 18.[facility] Allergies Active Allergy Reactions Criticality Noted Date [...] 06/27/2017 5:54 PM CDT Plan of Treatment Health Maintenance Due Date Last Done Comments BONE DENSITY TESTING 1956 COLOGUARD (AGES 45-75) - COL ON CA SCREENING 1956 COLON MONITORING 1956 COLONOSCOPY - COLON CA SCREENING 1956 CT COLONOGRAPHY - COLON CA SCREENING 1956 Colorectal Cancer Screening 1956 FIT - COLON CA SCREENING 1956 FLEX SIG - COLON CA SCREENING 1956 LIPID TESTING 1956 MAMMOGRAM 1956 HEPATITIS C SCREENING 09/03/1974 DTAP/TDAP/TD VACCINES (1 - Tdap) 1975 PNEUMOCOCCAL VACCINE 50+ (1 of 1 - PCV) 2006 ZOSTER VACCINE (1 of 2) 2006 COVID-19 VACCINE (1 - 2023-2 5 season) 2024 INFLUENZA VACCINE (#1) 2024 DEPRESSION SCREENING 08/29/2024 Respiratory Syncytial Virus (RSV) Vaccine Pt: or over 60 yrs (1 - 1-dose 75+ series) 2031 HEPATITIS B VACCINE Aged Out No longe r eligible based on patient's age to complete this topic HIB VACCINE Aged Out No longer eligi ble based on patient's age to complete this topic HPV VACCINE Aged Out No longer eligi ble based on patient's age to complete this topic MENINGOCOCCAL (Group B) VACCINE Aged Out No longer eligible based on patient's age to complete this topic MENINGOCOCCAL VACCINE Aged Out No tiffani kelli eligible based on patient's age to complete this topic Care Teams Radiology Physician Assistant Relationship Specialty Start Date End Date Vincent Truong MD [address] [place] [phone] PCP - General Family Medicine 06/27/17
== END 2024-09-24 09:53 | disposition home or self-care (01) ==
LOC: ANHIMG 09:54
PROVIDERS: PCP Family Medicine; Visit Provider Nurse Practitioner Family
DX: Z12.31 Encounter for screening mammogram for malignant neoplasm of breast (principal)
CPT/HCPCS: 77063; 77067

== ENCOUNTER 2024-11-20 14:32 | Outpatient (CLI) | payer MEDICARE, SELFPAY ==
--- NOTE | ~2024-11-20 | CT_ITS ---
EXAMINATION:CT diagnostic chest wo con DATE: 11/20/2024 14:51 INDICATION: Other nonspecific abnormal finding of lung field. TECHNIQUE: Computed tomography (CT) of the chest was performed without intravenous contrast. Automate d exposure control and iterative reconstruction technique were employed. The dose-length product (DLP ) was 145.05 mGy-cm. COMPARISON: Chest CT 05/17/2024, 02/14/24 FINDINGS: The lungs demonstrate mild atelectasis. There is a 12 mm part-solid nodule in left upper lo be. No pleural effusion. The heart size is normal. There is left atrial enlargement of the heart. No pericardial effusion. There are gallstones in the gallbladder which is normal in size. There is sever e cervical and lumbar spondylosis and moderate thoracic spondylosis. IMPRESSION: 1. 12 mm part-solid nodule in left lung upper lobe, stable from 02/14/2024, likely benign. Noncontrast low-dose chest CT is recommended in 12 months. Reviewed, dictated and finalized at location A. IMPRESSION: 1. 12 mm part-solid nodule in left lung upper lobe, stable from 02/14/2024, like ly benign. Noncontrast low-dose chest CT is recommended in 12 months.
--- OUTSIDE RECORDS SUMMARY | 2024-11-20 17:04 | XMS_ITS | Clinical Summary ---
Author Organization [facility] [employer] Address [address] [place] [address] Care Team Providers Care Top Coater Name Role Phone Vincent Truong MD Primary Care Provider [phone]- [phone] Source Comments [facility] [employer],non-owned Affiliates and Associated Physician Practices is amultiple site organization consisting of ambulatory clinics and hospital sitesin [place], [place], [place] and [place]. This disclosure is being madepursuant to the Care Everywhere program and may not contain all information available regarding this patient. Last updated 18.[facility] [employer] Allergies Active Allergy Reactions Criticality Noted Date [...] 94 06/27/2017 7:40 PM CDT Temperature 36.6 C (97.9 F) 06/27/2017 7:40 PM CDT Respiratory Rate 16 06/27/2017 7:40 PM CDT [...] VACCINE (1 of 2) 2006 COVID-19 VACCINE ( - 2023-2 5 season) 2024 INFLUENZA VACCINE [...] to complete this topic MENINGOCOCCAL (Group B) VACC INE SHARED DECISION-MAKING Aged Out No longer eligibl e based on patient's age to complete this topic MENINGOCOCCAL GROUPS A/C/Y/W VACCINE Aged Out No longer eligible b ased on patient's age to complete this topic Care Teams Top Coater Relationship Specialty Start Date End Date Vincent Truong MD [facility] [place] [address] PCP - General Family Medicine 06/27/17
--- OUTSIDE RECORDS SUMMARY | 2024-11-20 17:04 | XMS_ITS | Referral Summary ---
Author Organization [facility] Address [address] [place] [address] Care Team Providers Care On Line Csr Name Role Phone Vincent Truong MD Primary Care Provider [phone] [phone] Encounters Date Type Department Care Team Description 10/23/2024 12:05 PM BLENDING TANK HELPER Lab [facility] [address] [place] [address] Multiple sclerosis (HCC) 10/23/2024 10:30 AM BLENDING TANK HELPER Office Visit [facility] [address] [place] [address] Hugo Alexandre MD Moderate recurrent major depression (HCC) (Primary Dx); Multiple sclerosis (HCC) from Last 3 Months Allergies Active Allergy Reactions Criticality Noted Date Comments Codeine Headache Low Medications B-complex with vitamin C (SUPER B COMPLEX-VITAMI N C) tablet 0 3 Active ascorbic acid (vitamin C) 100 mg tablet Take as directed 0 3 Active multivit-credit union field examiner vp-kaqz-memecr (CENTRUM SILVER ULTRA WOMEN'S) tablet Take as directed 0 3 Active calcium citrate-vitami n D3 (CITRACAL + D MAXIMUM) 315-250 mg-unit per tablet 0 3 Active nebivolol (BYSTOLIC) 20 mg tablet take 1 tablet by oral route every day 0 0 3 Active cholecalcifero l (VITAMIN D3) 2,000 unit tablet take 1 tablet by oral route every day 0 0 4 Active aspirin 81 mg tablet take 1 tablet (81MG) by oral route every day 30 6 1 Active miscellaneous medical supply [facility] REBIJECT II AUTOINJECTOR 1 each 1 9 Active NOT IN DATABASE, PRESCRIPTION, RebiJect device. Use as directed. 1 each 1 Active amLODIPine (NORVASC) 5 mg tablet Take 1 tablet (5 mg total) by mouth daily 4 Active interferon beta-1a (Rebif, with albumin,) 44 mcg/0.5 mL injectionIndic ations:relapsi ng form of multiple sclerosis Inject 0.5 mL (44 mcg total) under the skin 3 (three) times a week 6 mL 11 5 026 Active sertraline (ZOLOFT) 50 mg tabletIndicati ons:Moderate recurrent major depression (HCC) Take 1 tablet (50 mg total) by mouth daily 30 tablet 5 5 026 Active irbesartan (AVAPRO) 300 mg tablet Take 1 tablet (300 mg total) by mouth daily Active metFORMIN XR (GLUCOPHAGE XR) 500 mg 24 hr tablet take 1 tablet by oral route every day with the evening meal 0 0 5 025 Discontin ued(Thera py completed ) irbesartan (AVAPRO) 300 mg tablet 3 025 Discontin ued(Thera py completed ) Active Problems Problem Noted Date Diagnosed Date [...] malformation Assessment & Plan (10/12/2023 6:49 AM BLENDING TANK HELPER): 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/03/2016): Anti-cardiolipin antibody positive Assessment & Plan (04/12/2024 8:36 PM CDT): 02/12/10 anticardiolipin IgG 39.2 (0.0-10.9) Aspirin 81 mg daily Assessment & Plan (10/12/2023 6:51 AM BLENDING TANK HELPER): 02/12/10 anticardiolipin IgG 39.2 (0.0-10.9) Aspirin 81 mg daily Assessment & Plan (04/12/2023 8:33 AM CDT): Aspirin 81 mg daily Assessment & Plan (09/02/2022 5:36 PM BLENDING TANK HELPER): Aspirin 81 mg daily Assessment & Plan [...] daily Assessment & Plan (09/12/2018 1:42 PM BLENDING TANK HELPER): Aspirin 81 mg daily Assessment & Plan [...] 2025 Assessment & Plan (10/12/2023 6:47 AM BLENDING TANK HELPER): Diagnosed in 2009 with enhancing lesion and [...] 2023 Assessment & Plan (09/02/2022 5:36 PM BLENDING TANK HELPER): Diagnosed in 2009 with enhancing lesion and [...] Truong. Assessment & Plan (09/12/2018 1:43 PM BLENDING TANK HELPER): Diagnosed in 2009 with enhancing lesion and positive spinal fluid Rebif. Rebiject 2. Risks discussed including hepatotoxicity Con't Vit D3 2000 IU daily Continue exercises Declined oral DMTs. Monoclonal antibodies discussed at appointment. MRI of the brain and cervical spine in October 2018 at [facility] on the 3 [address]. Patient will bring prior MRI scan of the brain from [facility] for comparison. No prior cervical spinal [...] urinary retention symptoms otherwise Urology referral Immunizations Immunization Administration Dates Next Due Influenza, Quadrivalent, Rec [...] on file Legal Sex Female 10:56 AM BLENDING TANK HELPER Gender Identity Not on file Sexual Orientation Not on file Last Filed Vital Signs Vital Sign Reading Time Taken Comments Blood Pressure 158/90 10/23/2024 10:47 AM BLENDING TANK HELPER Pulse 80 10/23/2024 10:47 AM BLENDING TANK HELPER Temperature 36.7 C (98.1 F) 10/23/2024 10:47 AM BLENDING TANK HELPER Respiratory Rate 16 11/27/2020 1:47 PM CDT Oxygen Saturation 97% 10/23/2024 10: 47 AM BLENDING TANK HELPER Inhaled Oxygen Concentration - - Weight 57.5 kg (126 lb 11.2 oz) 025 10:47 AM BLENDING TANK HELPER Height 167.6 cm (5' 6 ) 10/23/2024 10:4 7 AM BLENDING TANK HELPER Body Mass Index 20.45 10/23/2024 10:47 AM BLENDING TANK HELPER Plan of Treatment Not on file Procedures Procedure Name Priority Date/Time Associated Diagnosis Comments DIFFERENTIAL AUTO Routine 10/23/2024 12: 24 PM BLENDING TANK HELPER Multiple sclerosis (HCC) CBC WITH AUTO DIFFERENTIAL Routine 10/23/2024 12:24 PM BLENDING TANK HELPER Multiple sclerosis (HCC) HEPATIC FUNCTION PANEL Routine 10/23/2024 12:24 PM BLENDING TANK HELPER Multiple sclerosis (HCC) from Last 3 Months Results * Differential, auto (10/23/2024 12:24 PM BLENDING TANK HELPER) Neutrophil abs 1.6 1.5 - 6.5 K/cumm Imm gran abs 0.0 0.0 - 0.1 K/cumm [facility] Lymphocyte abs 1.3 0.8 - 3.3 K/cumm [facility] Monocyte abs 0.5 0.2 - 0.8 K/cumm [facility] Eosinophil abs 0.1 0.0 - 0.5 K/cumm [facility] Basophil abs 0.0 0.0 - 0.1 K/cumm [facility] Neutrophil pct 45.6 % [facility] Comment: Interpretive Data Percent cell count reference ranges are not reported, since discordance with absolute values may lead to misinterpretation of CBC data. Current Interpretive Data was last revised on 2017. Imm gran pct 0.3 % [facility] Comment: Interpretive Data Percent cell count reference ranges are not reported, since discordance with absolute values may lead to misinterpretation of CBC data. Current Interpretive Data was last revised on 2017. Lymphocyte pct 36.0 % [facility] Comment: Interpretive Data Percent cell count reference ranges are not reported, since discordance with absolute values may lead to misinterpretation of CBC data. Current Interpretive Data was last revised on 2017. Monocyte pct 15.3 % [facility] Comment: Interpretive Data Percent cell count reference ranges are not reported, since discordance with absolute values may lead to misinterpretation of CBC data. Current Interpretive Data was last revised on 2017. Eosinophil pct 2.0 % [facility] Comment: Interpretive Data Percent cell count reference ranges are not reported, since discordance with absolute values may lead to misinterpretation of CBC data. Current Interpretive Data was last revised on 2017. Basophil pct 0.8 % [facility] Comment: Interpretive Data Percent cell count reference ranges are not reported, since discordance with absolute values may lead to misinterpretation of CBC data. Current Interpretive Data was last revised on 2017. Blood 10/23/2024 12:2 4 PM BLENDING TANK HELPER 10/23/2024 3:23 PM BLENDING TANK HELPER us Hugo Alexandre MD LAB BLOOD ORDERABLES Final Re sult [facility] [address] Department [place] [address] * (ABNORMAL) CBC with auto differential (10/23/2024 12:24 PM BLENDING TANK HELPER) [facility] WBC 3.5(L) 3.8 - 9.9 K/cumm Hgb 13.1 11.9 - 15.5 g/dL [facility] Hct 39.7 35.6 - 45.5 % [facility] Plt 178 150 - 400 K/cumm [facility] MPV 11.8 9.1 - 12.3 fL [facility] RBC 4.22 3.90 - 5.20 M/cumm [facility] MCV 94.1 81.3 - 96.4 fL [facility] MCH 31.0 27.1 - 33.3 pg [facility] MCHC 33.0 32.3 - 35.7 g/dL [facility] RDW CV 12.7 11.1 - 14.9 % [facility] RDW SD 43.4 35.7 - 48.1 fL [facility] NRBC abs 0.00 0.00 - 0.01 K/cumm [facility] Blood 10/23/2024 12:2 4 PM BLENDING TANK HELPER 10/23/2024 3:23 PM BLENDING TANK HELPER us Hugo Alexandre MD LAB BLOOD ORDERABLES Final Re sult [facility] [address] Department [place] [address] * Hepatic function panel (10/23/2024 12:24 PM BLENDING TANK HELPER) [facility] Bilirubin, total 0.4 0.1 - 1.2 mg/dL Bilirubin, direct <0.2 0.1 - 0.3 mg/dL [facility] Protein, pl 6.8 6.5 - 8.5 g/dL [facility] Albumin 4.3 3.5 - 5.0 g/dL [facility] Alk phos 58 40 - 130 Units/L [facility] ALT 35 7 - 45 Units/L [facility] AST 34 10 - 45 Units/L [facility] Blood 10/23/2024 12:2 4 PM BLENDING TANK HELPER 10/23/2024 3:24 PM BLENDING TANK HELPER us Hugo Alexandre MD LAB BLOOD ORDERABLES Final Re sult [facility] [address] Department [place] [address] from Last 3 Months Insurance [facility] MEDIC[facility] Address: [place] [id number] [facility] MEDIC[facility] Address: [address] [address] [place] [address] [facility] Lender [facility] [employer] [id number] [place] [facility] MEDICARE ADVANTAGE [facility] MEDIC[facility] Address: [address] [address] [place] [address] Care Teams On Line Csr Relationship Specialty Start Date End Date Vincent Truong MD PCP - General 11/26/16
--- OUTSIDE RECORDS SUMMARY | 2024-11-20 17:04 | XMS_ITS | Clinical Summary ---
Author Organization [facility] Address [address] [place] [address] Care Team Providers Care Narrow Gauge Engineer Name Role Phone Vincent Truong MD Primary Care Provider [phone] [phone] Allergies Active Allergy Reactions Criticality Noted Date Comments Codeine Headache Low Medications B-complex with vitamin C (SUPER B COMPLEX-VITAMI N C) tablet 0 3 Active ascorbic acid (vitamin C) 100 mg tablet Take as directed 0 3 Active multivit-elevator examiner and adjuster rp-hkag-coxves (CENTRUM SILVER ULTRA WOMEN'S) tablet Take as [...] 30 6 1 Active miscellaneous medical supply [facility] REBIJECT II AUTOINJECTOR 1 each 1 9 [...] malformation Assessment & Plan (10/12/2023 6:49 AM EDITOR MAP): 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/03/2016): Anti-cardiolipin antibody positive Assessment & Plan (04/12/2024 8:36 PM CDT): 02/12/10 anticardiolipin IgG 39.2 (0.0-10.9) Aspirin 81 mg daily Assessment & Plan (10/12/2023 6:51 AM EDITOR MAP): 02/12/10 anticardiolipin IgG 39.2 (0.0-10.9) Aspirin 81 mg daily Assessment & Plan (04/12/2023 8:33 AM CDT): Aspirin 81 mg daily Assessment & Plan (09/02/2022 5:36 PM EDITOR MAP): Aspirin 81 mg daily Assessment & Plan [...] daily Assessment & Plan (09/12/2018 1:42 PM EDITOR MAP): Aspirin 81 mg daily Assessment & Plan [...] 2025 Assessment & Plan (10/12/2023 6:47 AM EDITOR MAP): Diagnosed in 2009 with enhancing lesion and [...] 2023 Assessment & Plan (09/02/2022 5:36 PM EDITOR MAP): Diagnosed in 2009 with enhancing lesion and [...] Truong. Assessment & Plan (09/12/2018 1:43 PM EDITOR MAP): Diagnosed in 2009 with enhancing lesion and positive spinal fluid Rebif. Rebiject 2. Risks discussed including hepatotoxicity Con't Vit D3 2000 IU daily Continue exercises Declined oral DMTs. Monoclonal antibodies discussed at appointment. MRI of the brain and cervical spine in October 2018 at [facility] on the 3 [address]. Patient will bring prior MRI scan of the brain from [facility] for comparison. No prior cervical [...] Department Care Team Description 10/23/2024 12:05 PM EDITOR MAP Lab [facility] [address] [place] [id number] Multiple sclerosis (HCC) 10/23/2024 10:30 AM EDITOR MAP Office Visit [facility] [address] [place] [address] Hugo Alexandre MD Moderate recurrent major depression (HCC) (Primary Dx); Multiple sclerosis (HCC) from Last 3 Months Immunizations Immunization Administration Dates Next Due Influenza, [...] on file Legal Sex Female 10:56 AM EDITOR MAP Gender Identity Not on file Sexual Orientation Not on file Obstetrics History Last Filed Vital Signs Vital Sign Reading Time Taken Comments Blood Pressure 158/90 10/23/2024 10:47 AM EDITOR MAP Pulse 80 10/23/2024 10:47 AM EDITOR MAP Temperature 36.7 C (98.1 F) 10/23/2024 10:47 AM EDITOR MAP Respiratory Rate 16 11/27/2020 1:47 PM CDT Oxygen Saturation 97% 10/23/2024 10: 47 AM EDITOR MAP Inhaled Oxygen Concentration - - Weight 57.5 kg (126 lb 11.2 oz) 025 10:47 AM EDITOR MAP Height 167.6 cm (5' 6 ) 10/23/2024 10:4 7 AM EDITOR MAP Body Mass Index 20.45 10/23/2024 10:47 AM EDITOR MAP Plan of Treatment Health Maintenance Due Date Last Done Comments Breast Cancer Screening-Mammogram 1956 Colon Cancer Screening-Colonoscopy 1955 Depression Screening 1956 Fall Risk Assessment 1956 Hepatitis C Screening 1956 Osteoporosis Screening-Bone Density Scan 1956 DTaP/Tdap/Td Vaccine (1 - Tdap) 1967 Hepatitis B Screening 1974 Zoster Vaccine (1 of 2) 2006 Well Visit 65+ 2021 Pneumococcal vaccine 65+ (2 of 2 - PPSV23) 10/21/2022 10/21/2021 Covid-19 Vaccine (6 - 2023-2 5 season) 2024 07/08/2022, 03/21/2022, 06/22/2021, Additional history exists Influenza Vaccine (#1) 2024 06/13/2020, 2018 Procedures Procedure Name Priority Date/Time Associated Diagnosis Comments DIFFERENTIAL AUTO Routine 10/23/2024 12: 24 PM EDITOR MAP Multiple sclerosis (HCC) CBC WITH AUTO DIFFERENTIAL Routine 10/23/2024 12:24 PM EDITOR MAP Multiple sclerosis (HCC) HEPATIC FUNCTION PANEL Routine 10/23/2024 12:24 PM EDITOR MAP Multiple sclerosis (HCC) from Last 3 Months Results * Differential, auto (10/23/2024 12:24 PM EDITOR MAP) Neutrophil abs 1.6 1.5 - 6.5 K/cumm Imm gran abs 0.0 0.0 - 0.1 K/cumm [facility] Lymphocyte abs 1.3 0.8 - 3.3 K/cumm [facility] Monocyte abs 0.5 0.2 - 0.8 K/cumm [facility] Eosinophil abs 0.1 0.0 - 0.5 K/cumm [facility] Basophil abs 0.0 0.0 - 0.1 K/cumm [facility] Neutrophil pct 45.6 % [facility] Comment: Interpretive Data Percent cell count reference ranges are not reported, since discordance with absolute values may lead to misinterpretation of CBC data. Current Interpretive Data was last revised on 2017. Imm gran pct 0.3 % [facility] Comment: Interpretive Data Percent cell count reference ranges are not reported, since discordance with absolute values may lead to misinterpretation of CBC data. Current Interpretive Data was last revised on 2017. Lymphocyte pct 36.0 % [facility] Comment: Interpretive Data Percent cell count reference ranges are not reported, since discordance with absolute values may lead to misinterpretation of CBC data. Current Interpretive Data was last revised on 2017. Monocyte pct 15.3 % [facility] Comment: Interpretive Data Percent cell count reference ranges are not reported, since discordance with absolute values may lead to misinterpretation of CBC data. Current Interpretive Data was last revised on 2017. Eosinophil pct 2.0 % [facility] Comment: Interpretive Data Percent cell count reference ranges are not reported, since discordance with absolute values may lead to misinterpretation of CBC data. Current Interpretive Data was last revised on 2017. Basophil pct 0.8 % [facility] Comment: Interpretive Data Percent cell count reference ranges are not reported, since discordance with absolute values may lead to misinterpretation of CBC data. Current Interpretive Data was last revised on 2017. Blood 10/23/2024 12:2 4 PM EDITOR MAP 10/23/2024 3:23 PM EDITOR MAP us Hugo Alexandre MD LAB BLOOD ORDERABLES Final Re sult [facility] [address] Department [place] [address] * (ABNORMAL) CBC with auto differential (10/23/2024 12:24 PM EDITOR MAP) WBC 3.5(L) 3.8 - 9.9 K/cumm Hgb 13.1 11.9 - 15.5 g/dL [facility] Hct 39.7 35.6 - 45.5 % [facility] Plt 178 150 - 400 K/cumm [facility] MPV 11.8 9.1 - 12.3 fL [facility] RBC 4.22 3.90 - 5.20 M/cumm [facility] MCV 94.1 81.3 - 96.4 fL [facility] MCH 31.0 27.1 - 33.3 pg [facility] MCHC 33.0 32.3 - 35.7 g/dL [facility] RDW CV 12.7 11.1 - 14.9 % [facility] RDW SD 43.4 35.7 - 48.1 fL [facility] NRBC abs 0.00 0.00 - 0.01 K/cumm [facility] Blood 10/23/2024 12:2 4 PM EDITOR MAP 10/23/2024 3:23 PM EDITOR MAP Hugo Alexandre MD LAB BLOOD ORDERABLES Final Re sult Performing Organization Address [facility]/State/ZIP Co de Phone Number [facility] [address] Department [place] [address] * Hepatic function panel (10/23/2024 12:24 PM EDITOR MAP) Pathologist [facility] Bilirubin, total 0.4 0.1 - 1.2 mg/dL Bilirubin, direct <0.2 0.1 - 0.3 mg/dL [facility] Protein, pl 6.8 6.5 - 8.5 g/dL [facility] Albumin 4.3 3.5 - 5.0 g/dL [facility] Alk phos 58 40 - 130 Units/L [facility] ALT 35 7 - 45 Units/L [facility] AST 34 10 - 45 Units/L [facility] Blood 10/23/2024 12:2 4 PM EDITOR MAP 10/23/2024 3:24 PM EDITOR MAP Hugo Alexandre MD LAB BLOOD ORDERABLES Final Re sult Performing Organization Address [facility] Co de Phone Number [facility] [address] Department [place] [address] from Last 3 Months Insurance [facility] MEDICARE ADVANTAGE [facility] MEDICARE ADVANTAGE [facility] [id number] [facility] MEDICARE ADVANTAGE Care Teams Narrow Gauge Engineer Relationship Specialty Start Date End Date Vincent Truong MD PCP - General 11/26/16
--- OUTSIDE RECORDS SUMMARY | 2024-11-20 17:04 | XMS_ITS | Clinical Summary ---
Author Organization [facility] Address [address] [place] [address] Phone Care Team Providers Care Audiovisual Production Specialist Name Role Phone Vincent Truong MD Primary Care Provider [phone]- [phone] Allergies No known active allergies Medications nebivoloL (BYSTOLIC) 10 mg Tablet Take 20 mg by mouth daily. Active metFORMIN (GLUCOPHAGE) 500 mg tablet Take 500 mg by mouth daily. Active lisinopriL (PRINIVIL) 10 mg tablet Take 10 mg by mouth daily. Active hydroCHLOROthiaz jasprete (MICROZIDE) 12.5 mg capsule Take 12.5 mg [...] Encounters Date Type Department Care Team Description 10/09/2024 External Device Data [facility] Provider, Abstract 09/25/2024 External Device Data [facility] Provider, Abstract 09/04/2024 External Device Data [facility] Provider, [...] on file Legal Sex Female 4:52 AM MUSEUM TOUR GUIDE Gender Identity Not on file Sexual Orientation Not on file Last Filed Vital Signs Vital Sign Reading Time Taken Comments Blood Pressure 141/74 04/07/2023 4:00 PM CDT Pulse 69 04/07/2023 4:00 PM CDT Temperature 36.9 C (98.5 F) 04/07/2023 4:00 PM CDT Respiratory Rate 15 04/07/2023 4:00 PM CDT [...] 2) 2006 OSTEOPOROSIS SCREENING 2021 PNEUMOCOCCAL VACCINE 50+ YEA RS (2 of 2 - PPSV23) 12/16/2021 10/21/2021 INFLUENZA VACCINE (#1) 2024 06/13/2020, 2018 RSV VACCINE (60+ or ) (1 - 1-dose 75+ series) 2031 Insurance [facility] [id number] Advance Directives For more information, please contact: [phone] * Full Code (Latest Code Status on File) Date Activated Date Inactivated Comments 04/06/2023 3:43 PM 04/07/2023 8:22 PM * Default Full Code - Needs Discussion Date Activated Date Inactivated Comments 04/06/2023 7:47 AM 04/06/2023 3:43 PM Care Teams Audiovisual Production Specialist Relationship Specialty Start Date End Date Vincent Truong MD [address] [place] [phone] PCP - General Family Practice 04/06/23
== END 2024-11-20 14:33 | disposition home or self-care (01) ==
PROVIDERS: PCP Family Medicine; Visit Provider Internal Medicine Cardiovascular Disease
DX: R91.8 Other nonspecific abnormal finding of lung field (principal)
CPT/HCPCS: 71250

== ENCOUNTER 2025-01-18 15:02 | Outpatient (CLI) | payer MEDICARE, SELFPAY ==
--- OUTSIDE RECORDS SUMMARY | 2025-01-18 15:06 | XMS_ITS | Clinical Summary ---
Author Organization [facility] Address [address] [place] [address] Care Team Providers Care Slurry Worker Name Role Phone Vincent Truong MD Primary Care Provider +1- [phone] Source Comments [facility],non-owned Affiliates and Associated Physician Practices is amultiple site organization consisting of ambulatory clinics and hospital sitesin [place], [place], [place] and [place]. This disclosure is being madepursuant to the Care Everywhere program and may not contain all information available regarding this patient. Last updated 18.[facility] Allergies Active Allergy Reactions Criticality Noted Date Comments Codeine Headache 06/27/2017 Medications * Be aware that medications may not be up to date on this document. Alwaysverify current medications with the patient. nebivolol (BYSTOLIC) 10 MG tablet Take 20 mg by mouth once daily Active metFORMIN (GLUCOPHAGE) 500 MG tablet Take 500 mg by mouth once daily Active hydroCHLOROthiaz jaspreet (MICROZIDE) 12.5 MG capsule Take 12.5 mg [...] daily Active Interferon Beta-1a (REBIF SC) Active HYDROcodone-acet aminophen (NORCO) 5-325 MG tablet Take 1 tablet [...] = 0.6 oz pur e alcohol) weekly Comments No Sex and Gender Information Value Date Recorded Sex Assigned at Not on file Legal Sex Female 5:00 PM CDT Gender Identity Not on file Sexual Orientation [...] VACCINE ( - 2023-2 5 season) 2024 DEPRESSION SCREENING 08/29/2024 INFLUENZA VACCINE (Season Ended) 2025 Respiratory Syncytial Virus (RSV) Vaccine Pt: or [...] on patient's age to complete this topic Insurance CARE PAYOR [place] [id number] CARE Care Teams Slurry Worker Relationship Specialty Start Date End Date Vincent Truong MD [address] [place] [phone] PCP - General Family Medicine 06/27/17
--- OUTSIDE RECORDS SUMMARY | 2025-01-18 15:06 | XMS_ITS | Clinical Summary ---
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 [employer] Gender Identity Not on file Sexual Orientation [...] (1 - 1-dose 75+ series) 2031 Insurance [facility] [id number] Advance Directives For more information, please contact: [phone] * Full Code (Latest Code Status on File) Date Activated Date Inactivated Comments 04/06/2023 3:43 PM 04/07/2023 8:22 PM * Default Full Code - Needs Discussion Date Activated Date Inactivated Comments 04/06/2023 7:47 AM 04/06/2023 3:43 PM Care Teams Jumpbasting Facing Baster Relationship Specialty Start Date End Date Vincent Truong MD [address] [place] [phone] PCP - General Family Practice 04/06/23
[2025-01-18 18:46] LABS: Alanine Aminotransferase 30 U/L (6-35); Albumin Level 3.9 g/dL (3.5-5.1); Alkaline Phosphatase 52 U/L (38-126); Aspartate Amino Transferase 48 U/L (14-36); Bilirubin,Total 0.5 mg/dL (0.2-1.3)
== END 2025-01-18 15:03 | disposition home or self-care (01) ==
LOC: ANHGOSHLAB 15:04
PROVIDERS: PCP Family Medicine
DX: B35.1 Tinea unguium (principal)
CPT/HCPCS: 36415; 80076

== ENCOUNTER 2025-05-06 13:42 | Outpatient (CLI) | payer MEDICARE, SELFPAY ==
--- OUTSIDE RECORDS SUMMARY | 2025-05-06 13:46 | XMS_ITS | Clinical Summary ---
Author Organization [facility] Address [address] [place] [address] Care Team Providers Care Hand Ii Thermal Cutter Name Role Phone Vincent Truong MD Primary Care Provider +1 -[phone] Allergies Active Allergy Reactions Criticality Noted Date Comments Codeine Headache Low Medications B-complex with vitamin C (SUPER B COMPLEX-VITAMIN C) tablet 0 3 Active ascorbic acid (vitamin C) 100 mg tablet Take as directed 0 3 Active multivit-minera k-geob-gnbsjj (CENTRUM SILVER ULTRA WOMEN'S) tablet Take as [...] 30 6 1 Active miscellaneous medical supply misc REBIJECT II AUTOINJECTOR 1 each 1 9 Active NOT IN DATABASE, PRESCRIPTION, RebiJect device. Use as directed. 1 each 1 Active Additional Information Patient not taking.Reported on 04/23/2025 amLODIPine (NORVASC) 5 mg tablet Take 1 tablet (5 mg total) by mouth daily 4 Active interferon beta-1a (Rebif, with albumin,) 44 mcg/0.5 mL injectionIndica tions:relapsing form of multiple sclerosis Inject 0.5 mL (44 mcg total) under the skin 3 (three) times a week 6 mL 11 5 10/10/19 26 Active sertraline (ZOLOFT) 50 mg tabletIndicatio ns:Moderate recurrent major depression (HCC) Take 1 tablet (50 mg total) by mouth daily 30 tablet 5 5 10/23/19 26 Active irbesartan (AVAPRO) 300 mg tablet Take 1 tablet (300 mg total) by mouth daily Active Active Problems Problem Noted Date Diagnosed Date Depression, controlled 04/23/2025 Cerebral cavernoma 04/12/2023 Assessment & Plan (04/12/2024 8:36 PM CDT): Possible right centrum semiovale cavernoma versus focal hemorrhage on CT and MRI imaging Another susceptibility weighted imaging abnormality in the right side of the splenium of the corpus callosum could be a separate cavernoma. CT angio April 06, 2023: No aneurysm or vascular malformation Assessment & Plan (10/12/2023 6:49 AM CELL FEED DEPARTMENT SUPERVISOR): Possible right centrum semiovale cavernoma versus focal [...] Option of seeing a hypertension specialist or utilities and maintenance supervisor discussed. 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/03/2016): Anti-cardiolipin antibody positive Assessment & Plan (04/12/2024 8:36 PM CDT): 02/12/10 anticardiolipin IgG 39.2 (0.0-10.9) Aspirin 81 mg daily Assessment & Plan (10/12/2023 6:51 AM CELL FEED DEPARTMENT SUPERVISOR): 02/12/10 anticardiolipin IgG 39.2 (0.0-10.9) Aspirin 81 mg daily Assessment & Plan (04/12/2023 8:33 AM CDT): Aspirin 81 mg daily Assessment & Plan (09/02/2022 5:36 PM CELL FEED DEPARTMENT SUPERVISOR): Aspirin 81 mg daily Assessment & Plan [...] daily Assessment & Plan (09/12/2018 1:42 PM CELL FEED DEPARTMENT SUPERVISOR): Aspirin 81 mg daily Assessment & Plan [...] 2025 Assessment & Plan (10/12/2023 6:47 AM CELL FEED DEPARTMENT SUPERVISOR): Diagnosed in 2009 with enhancing lesion and [...] 2023 Assessment & Plan (09/02/2022 5:36 PM CELL FEED DEPARTMENT SUPERVISOR): Diagnosed in 2009 with enhancing lesion and [...] Truong. Assessment & Plan (09/12/2018 1:43 PM CELL FEED DEPARTMENT SUPERVISOR): Diagnosed in 2009 with enhancing lesion and positive spinal fluid Rebif. Rebiject 2. Risks discussed including hepatotoxicity Con't Vit D3 2000 IU daily Continue exercises Declined oral DMTs. Monoclonal antibodies discussed at appointment. MRI of the brain and cervical spine in October 2018 at [facility] on the 3 [address]. Patient will bring prior MRI scan of the brain from [facility] for comparison. No prior cervical [...] Encounters Date Type Department Care Team Description 04/23/2025 11:05 AM CDT Lab [address] [address] Multiple sclerosis (HCC) 04/23/2025 10:30 AM CDT Office [place] [facility] [address] [place] [phone] Hugo Alexandre MD Multiple sclerosis (HCC) (Primary Dx); Anticardiolipin antibody positive; Essential hypertension; Depression, controlled 04/17/2025 Telephone [facility] in [address] [phone] Hugo Alexandre MD from Last 3 Months Immunizations Immunization Administration [...] Binge Drinking Not on file 08/2020 Comments No Sex and Gender Information Value Date Recorded Sex Assigned at Not on file Legal Sex Female 10:56 AM CELL FEED DEPARTMENT SUPERVISOR Gender Identity Not on file Sexual Orientation Not on file Obstetrics History Last Filed Vital Signs Vital Sign Reading Time Taken Comments Blood Pressure 152/76 04/23/2025 10:16 AM CDT Pulse 72 04/23/2025 10:16 AM CDT Temperature 36.7 C (98.1 F) 10/23/2024 10:47 AM CELL FEED DEPARTMENT SUPERVISOR Respiratory Rate 16 11/27/2020 1:47 PM CDT Oxygen Saturation 98% 04/23/2025 10:16 AM CDT Inhaled Oxygen Concentration - - Weight 57.4 kg (126 lb 8 oz) 04/23/2025 10:16 AM CDT Height 167.6 cm (5' 6) 04/23/2025 10:16 AM CDT Body Mass Index 20.42 04/23/2025 10:16 AM CDT Plan of Treatment Health Maintenance Due Date Last Done Comments Breast Cancer Screening-Mammogram 1955 Colon Cancer Screening-Colonoscopy 1955 Depression Screening 1955 Fall Risk Assessment 1955 Hepatitis C Screening 1955 Osteoporosis Screening-Bone Density Scan 1955 Hepatitis B Screening 1974 Zoster Vaccine (1 of 2) 2006 Well Visit 65+ 2021 Pneumococcal vaccine 65+ (2 of 2 - PCV20 or PCV21) 10/21/2022 10/21/2021 Covid-19 Vaccine (6 2024-2 6 season) 2025 07/08/2022, 03/21/2022, 06/22/2021, Additional history exists Influenza Vaccine (#1) 2025 3, 05/29/2021, 06/13/2020, Additional history exists DTaP/Tdap/Td Vaccine (4 - Td or Tdap) 04/05/2033 04/05/2023, 06/13/2017, 07/25/2009 Procedures Procedure Name Priority Date/Time Associated Diagnosis Comments DIFFERENTIAL AUTO Routine 04/23/2025 11: 11 AM CDT Multiple sclerosis (HCC) CBC WITH AUTO DIFFERENTIAL Routine 04/23/2025 11:11 AM CDT Multiple sclerosis (HCC) HEPATIC FUNCTION PANEL Routine 04/23/2025 11:11 AM CDT Multiple sclerosis (HCC) from Last 3 Months Results * Differential, auto (04/23/2025 11:11 AM CDT) Neutrophil abs 1.57 1.50 - 6.50 K/cumm Imm gran abs 0.00 0.00 - 0.10 K/cumm [facility] Lymphocyte abs 1.17 0.80 - 3.30 K/cumm [facility] Monocyte abs 0.55 0.20 - 0.80 K/cumm [facility] Eosinophil abs 0.11 0.00 - 0.50 K/cumm [facility] Basophil abs 0.02 0.00 - 0.10 K/cumm [facility] Neutrophil pct 45.9 % [facility] Comment: Interpretive Data Percent cell count reference ranges are not reported, since discordance with absolute values may lead to misinterpretation of CBC data. Current Interpretive Data was last revised on 2017. Imm gran pct 0.0 % [facility] Comment: Interpretive Data Percent cell count reference ranges are not reported, since discordance with absolute values may lead to misinterpretation of CBC data. Current Interpretive Data was last revised on 2017. Lymphocyte pct 34.2 % [facility] Comment: Interpretive Data Percent cell count reference ranges are not reported, since discordance with absolute values may lead to misinterpretation of CBC data. Current Interpretive Data was last revised on 2017. Monocyte pct 16.1 % [facility] Comment: Interpretive Data Percent cell count reference ranges are not reported, since discordance with absolute values may lead to misinterpretation of CBC data. Current Interpretive Data was last revised on 2017. Eosinophil pct 3.2 % [facility] Comment: Interpretive Data Percent cell count reference ranges are not reported, since discordance with absolute values may lead to misinterpretation of CBC data. Current Interpretive Data was last revised on 2017. Basophil pct 0.6 % [facility] Comment: Interpretive Data Percent cell count reference ranges are not reported, since discordance with absolute values may lead to misinterpretation of CBC data. Current Interpretive Data was last revised on 2017. Blood 04/23/2025 11:1 1 AM CDT 04/23/2025 4:08 PM CDT us Hugo Alexandre MD LAB BLOOD ORDERABLES Final Re sult [facility] [address] Department [place] [address] * (ABNORMAL) CBC with auto differential (04/23/2025 11:11 AM CDT) WBC 3.42(L) 3.80 - 9.90 K/cumm Hgb 12.8 11.9 - 15.5 g/dL [facility] Hct 38.3 35.6 - 45.5 % [facility] Plt 186 150 - 400 K/cumm [facility] MPV 12.2 9.1 - 12.3 fL [facility] RBC 4.24 3.90 - 5.20 M/cumm [facility] MCV 90.3 81.3 - 96.4 fL [facility] MCH 30.2 27.1 - 33.3 pg [facility] MCHC 33.4 32.3 - 35.7 g/dL [facility] RDW CV 12.8 11.1 - 14.9 % [facility] RDW SD 42.1 35.7 - 48.1 fL [facility] NRBC abs 0.00 0.00 - 0.01 K/cumm [facility] Blood 04/23/2025 11:1 1 AM CDT 04/23/2025 4:08 PM CDT Hugo Alexandre MD LAB BLOOD ORDERABLES Final Re sult Performing Organization Address [facility] Co de Phone Number [facility] [address] Department [place] [address] * Hepatic function panel (04/23/2025 11:11 AM CDT) Bilirubin, total 0.3 0.1 - 1.2 mg/dL Bilirubin, direct <0.2 0.1 - 0.3 mg/dL [facility] Protein, pl 6.9 6.5 - 8.5 g/dL [facility] Albumin 4.1 3.5 - 5.0 g/dL [facility] Alk phos 58 40 - 130 Units/L [facility] ALT 28 7 - 45 Units/L [facility] AST 33 10 - 45 Units/L [facility] Blood 04/23/2025 11:1 1 AM CDT 04/23/2025 4:08 PM CDT Hugo Alexandre MD LAB BLOOD ORDERABLES Final Re sult Performing Organization Address [facility] Co de Phone Number [facility] [address] Department [place] [address] from Last 3 Months Insurance [facility] [place] [address] [facility] [place] [address] [place] [id number] [facility] H[facility]/PPO Address: [facility] [address] [place] [address] [facility] [place] [address] Care Teams Hand Ii Thermal Cutter Relationship Specialty Start Date End Date Vincent Truong MD PCP - General 11/26/16
--- OUTSIDE RECORDS SUMMARY | 2025-05-06 13:46 | XMS_ITS | Clinical Summary ---
Author Organization [facility] Address [address] [place] [address] Phone Care Team Providers Care Sorting And Folding Supervisor Name Role Phone Vincent Truong MD Primary Care Provider +1- [phone] Allergies No known active allergies Medications nebivoloL [...] on file Legal Sex Female 4:52 AM TIRE REPAIRER Gender Identity Not on file Sexual Orientation [...] A M CDT Height 167.6 cm (5' 6) 04/06/2023 4:57 AM CDT Body Mass Index [...] 50+ YEA RS (2 of 2 - PPSV23, PCV20, or PCV21) 12/16/2021 10/21/2021 INFLUENZA VACCINE (#1) 2025 06/13/2020, 2018 RSV VACCINE (60+ or ) (1 - 1-dose 75+ series) 2031 Insurance [facility] [id number] Advance Directives For more information, please contact: [phone] * Full Code (Latest Code Status on File) Date Activated Date Inactivated Comments 04/06/2023 3:43 PM 04/07/2023 8:22 PM * Default Full Code - Needs Discussion Date Activated Date Inactivated Comments 04/06/2023 7:47 AM 04/06/2023 3:43 PM Care Teams Sorting And Folding Supervisor Relationship Specialty Start Date End Date Vincent Truong MD [address] [place] [phone] PCP - General Family Practice 04/06/23
--- OUTSIDE RECORDS SUMMARY | 2025-05-06 13:46 | XMS_ITS | Clinical Summary ---
Author Organization [facility] Address [address] [place] [address] Care Team Providers Care Project Manager Retail Name Role Phone Vincent Truong MD Primary Care Provider +1- [phone] Source Comments [facility],non-owned Affiliates and Associated Physician Practices is amultiple site organization consisting of ambulatory clinics and hospital sitesin [place], [place], [place] and [place]. This disclosure is being madepursuant to the Care Everywhere program and may not contain all information available regarding this patient. Last updated 18.[facility] Allergies Active Allergy Reactions Criticality Noted Date [...] 5:54 PM CDT Height 167.6 cm (5' 6) 06/27/2017 5:54 PM CDT Body Mass Index [...] 2006 ZOSTER VACCINE (1 of 2) 2006 DEPRESSION SCREENING 08/29/2024 COVID-19 VACCINE (1 - 2023-2 5 season) 2025 INFLUENZA VACCINE (#1) 2025 Respiratory Syncytial Virus (RSV) Vaccine Pt: [...] complete this topic Insurance [employer] [place] [place] [address] CARE Care Teams Project Manager Retail Relationship Specialty Start Date End Date Vincent Truong MD [address] [place] [phone] PCP - General Family Medicine 06/27/17
[2025-05-06 19:14] LABS: Add Urine Microscopic? YES; Appearance Urine Turbid (Clear); Glucose Urine UA Negative (Negative); Leukocyte Esterase Ur 3+ LEU/UL (Negative); Need Manual Microscopic Reviewed; Nitrate Urine Negative (Negative); Specific Grav Ur 1.016 (1.001-1.035)
== END 2025-05-06 13:43 | disposition home or self-care (01) ==
LOC: ANHGOSHLAB 13:43
PROVIDERS: PCP Family Medicine; Visit Provider Obstetrics & Gynecology
DX: R39.15 Urgency of urination (principal)
CPT/HCPCS: 81001; 87077; 87086; 87186

== ENCOUNTER 2025-05-28 13:35 | Outpatient (CLI) | payer MEDICARE, SELFPAY ==
--- NOTE | 2025-05-28 13:37 | ECHO_ITS ---
Patient Info Name: Linn Stephens Age: 69 years : 1955 Gender: Female Ht: 66 in Wt: 124 lbs BSA: 1.61 m2 HR: 68 bpm BP: 170 / 95 mmHg Technical Quality: Good Exam Date: 05/28/2025 1:51 PM Patient Status: O Admit Date: 05/28/2025 Exam Type: CA echo doppler color flow Complete two-dimensional, color flow and Doppler transthoracic echocardiogram is performed. Reception Interviewer: Janeen Allen Attending Provider: Harmeet Britt DO Summary 1. Complete two-dimensional, color flow and Doppler transthoracic echocardiogram is performed. 2. Left ventricular chamber dimension is mildly enlarged. 3. Left ventricular systolic function is normal, estimated at 55-60. 4. The left ventricular diastolic function is grade I diastolic dysfunction. 5. E/e' 14 is mildly elevated. 6. The aortic valve is bicuspid. 7. Left atrial chamber dimension is moderately enlarged. 8. There is mild aortic valve sclerosis. 9. There is moderate aortic valve regurgitation. 10. The mitral valve has a moderately calcified annulus. Left Ventricle E/e' 14 is mildly elevated. Left ventricular chamber dimension is mildly enlarged. Left ventricular systolic function is normal, estimated at 55-60. The left ventricular diastolic function is grade I diastolic dysfunction. Right Ventricle Right ventricular chamber dimension is normal. Right ventricular systolic function is normal and with normal TAPSE 2.1 cm. Left Atria Left atrial chamber dimension is moderately enlarged. Right Atria Right atrial chamber dimension is normal. Aortic Valve The aortic valve is bicuspid. There is mild aortic valve sclerosis. There is no aortic valve stenosis. There is moderate aortic valve regurgitation. Pulmonic Valve There is no pulmonic regurgitation. Mitral Valve The mitral valve has a moderately calcified annulus. There is no mitral valve stenosis. There is no mitral valve regurgitation. Tricuspid Valve There is no tricuspid valve regurgitation. Pericardium/Pleural There is no pericardial effusion. Inferior Vena Cava Normal inferior vena cava with >50% collapse upon inspiration consistent with normal right atrial pressure, 5 mmHg. Aorta The aortic root size at the sinus of Valsalva is normal. Left Ventricular Outflow Tract Name Value Normal LVOT 2D LVOT Diameter 2.0 cm LVOT Doppler LVOT Peak Velocity 77 cm/s LVOT Peak Gradient 2 mmHg LVOT Mean Gradient 1 mmHg LVOT VTI 17 cm LVOT VTI/AV VTI Ratio 0.7 LVOT Stroke Volume 55 ml LVOT CO 3.8 l/min LVOT CI 2.3 l/min/m2 Pulmonic Valve Name Value Normal RVOT Doppler RVOT Peak Velocity 73 cm/s RVOT Peak Gradient 2 mmHg PV Doppler PV Peak Velocity 89 cm/s PV Peak Gradient 3 mmHg Mitral Valve Name Value Normal MV Diastolic Function MV E Peak Velocity 73 cm/s MV A Peak Velocity 91 cm/s MV E/A 0.8 MV Decel Time (PW) 185 ms MV Annular TDI MV E/e' (Septal) 21.3 MV E/e' (Lateral) 11.0 MV E/e' (Average) 16.2 Tricuspid Valve Name Value Normal Estimated PAP/RSVP RA Pressure 5 mmHg <=5 TV Annular TDI TV Lateral Kaylynn s' Velocity 12.5 cm/s >=9.5 Aortic Valve Name Value Normal AV Doppler AV Peak Velocity 119 cm/s AV Peak Gradient 6 mmHg AV Mean Gradient 3 mmHg AV VTI 26 cm AV Area (Cont Eq VTI) 2.1 cm2 >=3.0 AV Area (Cont Eq Horace) 2.1 cm2 AV DI (Horace) 0.64 AV Regurgitation 2D LVOT Area 3.3 cm2 Ventricles Name Value Normal LV Dimensions 2D/MM IVS Diastolic Thickness (2D) 0.9 cm 0.6-1.0 LVID Diastole (2D) 5.3 cm 3.8-5.2 LVIW Diastolic Thickness (2D) 0.9 cm 0.6-0.9 LVID Systole (2D) 3.8 cm 2.2-3.5 LVOT Diameter 2.0 cm LV Mass (2D Cubed) 178.93 g 67.00-162.00 LV Mass Index (2D Cubed) 111 g/m2 43-95 Relative Wall Thickness (2D) 0.34 <=0.42 LV Fractional Shortening/Ejection Fraction 2D/MM LV Fractional Shortening (2D) 29 % 27-45 LV EF (2D Teichholz) 55 % LV Diastolic Volume (4C MOD) 87 ml LV EF (4C MOD) 56 % LV Diastolic Volume (2C MOD) 69 ml LV EF (2C MOD) 57 % LV Diastolic Volume (BP MOD) 84 ml 46-106 LV Diastolic Volume Index (BP MOD) 52 ml/m2 29-61 LV Systolic Volume (BP MOD) 35 ml 14-42 LV Systolic Volume Index (BP MOD) 22 ml/m2 8-24 LV EF (BP MOD) 58 % 54-74 LV Diastolic Length (4C) 6.4 cm LV Systolic Length (4C) 5.6 cm LV Stroke Volume (4C MOD) 49 ml Atria Name Value Normal LA Dimensions LA Volume (4C A-L) 53 ml LA Volume (BP A-L) 58 ml RA Dimensions RA Area (4C) 11.0 cm2 <=18.0 Report Signatures Amended by Harmeet Britt DO on 05/28/2025 03:47 PM
--- OUTSIDE RECORDS SUMMARY | 2025-05-28 13:47 | XMS_ITS | Clinical Summary ---
Author Organization [facility] Address [address] [place] [address] Phone Care Team Providers Care Renal Social Worker Name Role Phone Vincent Truong MD Primary Care Provider +1- [phone] Allergies No known active allergies Medications nebivoloL [...] on file Legal Sex Female 4:52 AM CANVAS CUTTER HAND Gender Identity Not on file Sexual Orientation [...] (1 - 1-dose 75+ series) 2031 Insurance [facility] [id number] Advance Directives For more information, please contact: [phone] * Full Code (Latest Code Status on File) Date Activated Date Inactivated Comments 04/06/2023 3:43 PM 04/07/2023 8:22 PM * Default Full Code - Needs Discussion Date Activated Date Inactivated Comments 04/06/2023 7:47 AM 04/06/2023 3:43 PM Care Teams Renal Social Worker Relationship Specialty Start Date End Date Vincent Truong MD [address] [place] [phone] PCP - General Family Practice 04/06/23
--- OUTSIDE RECORDS SUMMARY | 2025-05-28 13:47 | XMS_ITS | Encounter Summary ---
Author Organization [facility] Address [address] [place] [address] Care Team Providers Care Traditional Maori Health Practitioner Name Role Phone Vincent Truong MD Primary Care Provider [phone] [phone] Encounter Details Date Type Department Care Team (Latest Contact Info) Description 05/22/2025 Results Follow-Up [facility] [address] [facility] [address] [place] [address] Kathryn Linton PA [address] [place] [address] MRI Brain WO Contrast Social History Tobacco Use Types Packs/Day Years Used Date Smoking Tobacco: Never Smokeless Tobacco: Never Alcohol Use Standard Drinks/Week Comments Yes 0 [...] on file Legal Sex Female 10:[address] [employer] Gender Identity Not on file Sexual Orientation Not on file documented as of this encounter Plan of Treatment Not on file documented as of this encounter Visit Diagnoses Not on filedocumented in this encounter Care Teams Traditional Maori Health Practitioner Relationship Specialty Start Date End Date Vincent Truong MD PCP - General 11/26/16 documented as of this encounter
--- OUTSIDE RECORDS SUMMARY | 2025-05-28 13:47 | XMS_ITS | Clinical Summary ---
Author Organization [facility] Address [address] [place] [address] Care Team Providers Care Dry Man Name Role Phone Vincent Truong MD Primary Care Provider [phone] Allergies Active Allergy Reactions Criticality Noted Date Comments Codeine Headache Low Medications B-complex with vitamin C (SUPER B COMPLEX-VITAMIN C) tablet 0 3 Active ascorbic acid (vitamin C) 100 mg tablet Take as directed 0 3 Active multivit-minera [id number] (CENTRUM SILVER ULTRA WOMEN'S) tablet Take as [...] 30 6 1 Active miscellaneous [facility] REBIJECT II AUTOINJECTOR 1 each 1 9 [...] malformation Assessment & Plan (10/12/2023 6:49 AM 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/03/2016): Anti-cardiolipin antibody positive Assessment & Plan (04/12/2024 8:36 PM CDT): 02/12/10 anticardiolipin IgG 39.2 (0.0-10.9) Aspirin 81 mg daily Assessment & Plan (10/12/2023 6:51 AM TERRAZZO WORKER HELPER): 02/12/10 anticardiolipin IgG 39.2 (0.0-10.9) Aspirin 81 mg daily Assessment & Plan (04/12/2023 8:33 AM CDT): Aspirin 81 mg daily Assessment & Plan (09/02/2022 5:36 PM TERRAZZO WORKER HELPER): Aspirin 81 mg daily Assessment & [...] daily Assessment & Plan (09/12/2018 1:42 PM TERRAZZO WORKER HELPER): Aspirin 81 mg daily Assessment & [...] 2025 Assessment & Plan (10/12/2023 6:47 AM TERRAZZO WORKER HELPER): Diagnosed in 2009 with enhancing lesion [...] 2023 Assessment & Plan (09/02/2022 5:36 PM TERRAZZO WORKER HELPER): Diagnosed in 2009 with enhancing lesion [...] Truong. Assessment & Plan (09/12/2018 1:43 PM TERRAZZO WORKER HELPER): Diagnosed in 2009 with enhancing lesion and positive spinal fluid Rebif. Rebiject 2. Risks discussed including hepatotoxicity Con't Vit D3 2000 IU daily Continue exercises Declined oral DMTs. Monoclonal antibodies discussed at appointment. MRI of the brain and cervical spine in October 2018 at [facility] on the [address]. Patient will bring prior MRI scan of the brain from [facility] for comparison. No prior cervical spinal cord [...] Encounters Date Type Department Care Team Description 05/22/2025 Results Follow-Up [facility] in [address] [address] Kathryn Linton PA MRI Brain WO Contrast 05/11/2025 11:51 AM CDT - 05/11/2025 11:59 PM CDT Hospital Encounter [facility] - Imaging [address] [place] [address] Hugo Alexandre MD Multiple sclerosis (HCC) Discharge Disposition: Discharge to home or self care 04/23/2025 11:05 AM CDT Lab [facility] [address] [place] [address] Multiple sclerosis (HCC) 04/23/2025 10:30 AM CDT Office Visit [facility] [place] [facility] in [address] [place] [address] Hugo Alexandre MD Multiple sclerosis (HCC) (Primary Dx); Anticardiolipin antibody positive; Essential hypertension; Depression, controlled 04/17/2025 Telephone [facility] in [facility] [address] [place] [address] Hugo Alexandre MD from Last 3 Months [...] on file Legal Sex Female 10:56 AM 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 WORKER HELPER Gender Identity Not on file Sexual Orientation Not on file Obstetrics History Last Filed Vital Signs Vital Sign Reading Time Taken Comments Blood Pressure 152/76 04/23/2025 10:16 AM CDT Pulse 72 04/23/2025 10:16 AM CDT Temperature 36.7 C (98.1 F) 10/23/2024 10:47 AM TERRAZZO WORKER HELPER Respiratory Rate 16 11/27/2020 1:47 PM [...] or PCV21) 10/21/2022 10/21/2021 Covid-19 Vaccine (6 - 2024-2 6 season) 2025 07/08/2022, 03/21/2022, 06/22/2021, Additional history exists Influenza Vaccine (#1) 2025 , 05/29/2021, 06/13/2020, Additional history exists DTaP/Tdap/Td Vaccine (4 - Td or Tdap) 04/05/2033 04/05/2023, 06/13/2017, 07/25/2009 Procedures Procedure Name Priority Date/Time Associated Diagnosis Comments MRI BRAIN WO CONTRAST Schedule Routine, Read Routine (OP Routine) 05/11/2025 12:42 PM CDT Multiple sclerosis (HCC) DIFFERENTIAL AUTO Routine 04/23/2025 11: 11 AM CDT Multiple sclerosis (HCC) CBC WITH AUTO DIFFERENTIAL Routine 04/23/2025 11:11 AM CDT Multiple sclerosis (HCC) HEPATIC FUNCTION PANEL Routine 04/23/2025 11:11 AM CDT Multiple sclerosis (HCC) from Last 3 Months Results * MRI Brain WO Contrast (05/11/2025 12:42 PM CDT) Anatomical Region Laterality Modality Head and Neck N/A Magnetic Resonan ce 05/13/2025 9:51 AM CDT Impressions 05/13/2025 11:18 AM CDT Small new lesion in the left middle cerebellar peduncle (series 7 image 8, series 15 image 20). No diffusion restriction. No contrast was administered. Otherwise stable appearance of the multiple white matter lesions, consistent with advanced multiple sclerosis. Dictated by: Adelina Stern M.D. The radiology attending physician has personally reviewed this study, and had reviewed and/or edited this written report and agrees with it. Electronically signed by: Maurilio Cota MD Narrative 05/13/2025 11:18 AM CDT EXAMINATION: Magnetic resonance imaging (MRI) of the brain and brainstem without contrast HISTORY: Multiple sclerosis follow-up. TECHNIQUE: Multiplanar multi-weighted MRI of the brain and brainstem was performed without intravenous contrast using the general brain protocol. COMPARISON: MRI brain 04/18/2023, MRI brain 07/11/2021 FINDINGS: Multiple T2 and FLAIR hyperintensities involving the subcortical, juxtacortical periventricular, callosal and left cerebellar white matter consistent with a reported history of multiple sclerosis. A single small T1 hypointense lesion with a thin noncircumferential rim of surrounding FLAIR hyperintensity in the left posterior middle cerebellar peduncle on series 7 image 8, series 15 image 20 is new compared to the previous study. No associated diffusion restriction. No contrast was administered. There is ex vacuo dilatation of the left lateral ventricle. Stable FLAIR hyperintense signal in the intraorbital segment of the left optic nerve. T2 hypointensity in the right guzmán radiata is unchanged. A minority of lesions exhibit T1 hypointensity. The scalp and calvarium are normal. The superior sagittal sinus demonstrates normal venous flow. The posterior fossa is unremarkable. The pituitary and sella are normal. The brainstem and craniocervical junction are unremarkable. Diffusion weighted images reveal no hyperintensities to suggest acute cerebral infarction. No blood sensitive sequences were performed. T2 hypointense microhemorrhages in the right frontal periventricular and left temporal white matter seen on series 17, image 19 is unchanged.. The ventricles are normal in size and position without evidence of hydrocephalus. The paranasal sinuses are normal. The visualized portions of the mastoids are unremarkable. Normal flow voids are demonstrated in the carotid arteries and basilar artery. Procedure Note Maurilio Cota MD PhD - 05/13/2025 EXAMINATION: Magnetic resonance imaging (MRI) of the brain and brainstem without contrast HISTORY: Multiple sclerosis follow-up. TECHNIQUE: Multiplanar multi-weighted MRI of the brain and brainstem was performed without intravenous contrast using the general brain protocol. COMPARISON: MRI brain 04/18/2023, MRI brain 07/11/2021 FINDINGS: Multiple T2 and FLAIR hyperintensities involving the subcortical, juxtacortical periventricular, callosal and left cerebellar white matter consistent with a reported history of multiple sclerosis. A single small T1 hypointense lesion with a thin noncircumferential rim of surrounding FLAIR hyperintensity in the left posterior middle cerebellar peduncle on series 7 image 8, series 15 image 20 is new compared to the previous study. No associated diffusion restriction. No contrast was administered. There is ex vacuo dilatation of the left lateral ventricle. Stable FLAIR hyperintense signal in the intraorbital segment of the left optic nerve. T2 hypointensity in the right guzmán radiata is unchanged. A minority of lesions exhibit T1 hypointensity. The scalp and calvarium are normal. The superior sagittal sinus demonstrates normal venous flow. The posterior fossa is unremarkable. The pituitary and sella are normal. The brainstem and craniocervical junction are unremarkable. Diffusion weighted images reveal no hyperintensities to suggest acute cerebral infarction. No blood sensitive sequences were performed. T2 hypointense microhemorrhages in the right frontal periventricular and left temporal white matter seen on series 17, image 19 is unchanged.. The ventricles are normal in size and position without evidence of hydrocephalus. The paranasal sinuses are normal. The visualized portions of the mastoids are unremarkable. Normal flow voids are demonstrated in the carotid arteries and basilar artery. IMPRESSION: Small new lesion in the left middle cerebellar peduncle (series 7 image 8, series 15 image 20). No diffusion restriction. No contrast was administered. Otherwise stable appearance of the multiple white matter lesions, consistent with advanced multiple sclerosis. Dictated by: Adelina Stern M.D. The radiology attending physician has personally reviewed this study, and had reviewed and/or edited this written report and agrees with it. Electronically signed by: Maurilio Cota MD us Hugo Alexandre MD [facility] MRI PROCEDURES Final Resu lt * Differential, auto (04/23/2025 11:11 AM CDT) Pathologist [facility] Neutrophil abs 1.57 1.50 - 6.50 K/cumm Imm gran abs 0.00 0.00 - 0.10 K/cumm [facility] Lymphocyte abs 1.17 0.80 - 3.30 K/cumm [facility] Monocyte abs 0.55 0.20 - 0.80 K/cumm [facility] Eosinophil abs 0.11 0.00 - 0.50 K/cumm [facility] Basophil abs 0.02 0.00 - 0.10 K/cumm [facility] Neutrophil pct 45.9 % [facility] Comment: Interpretive Data Percent cell count reference ranges are not reported, since discordance with absolute values may lead to misinterpretation of CBC data. Current Interpretive Data was last revised on 2017. Imm gran pct 0.0 % [facility] Comment: Interpretive Data Percent cell count reference ranges are not reported, since discordance with absolute values may lead to misinterpretation of CBC data. Current Interpretive Data was last revised on 2017. Lymphocyte pct 34.2 % [facility] Comment: Interpretive Data Percent cell count reference ranges are not reported, since discordance with absolute values may lead to misinterpretation of CBC data. Current Interpretive Data was last revised on 2017. Monocyte pct 16.1 % [facility] Comment: Interpretive Data Percent cell count reference ranges are not reported, since discordance with absolute values may lead to misinterpretation of CBC data. Current Interpretive Data was last revised on 2017. Eosinophil pct 3.2 % [facility] Comment: Interpretive Data Percent cell count reference ranges are not reported, since discordance with absolute values may lead to misinterpretation of CBC data. Current Interpretive Data was last revised on 2017. Basophil pct 0.6 % [facility] Comment: Interpretive Data Percent cell count reference ranges are not reported, since discordance with absolute values may lead to misinterpretation of CBC data. Current Interpretive Data was last revised on 2017. Blood 04/23/2025 11:1 1 AM CDT 04/23/2025 4:08 PM CDT us Hugo Alexandre MD LAB BLOOD ORDERABLES Final Re sult [facility] [address] [place] [address] * (ABNORMAL) CBC with auto differential (04/23/2025 11:11 AM CDT) [facility] WBC 3.42(L) 3.80 - 9.90 K/cumm Hgb 12.8 11.9 - 15.5 g/dL [facility] Hct 38.3 35.6 - 45.5 % [facility] Plt 186 150 - 400 K/cumm [facility] MPV 12.2 9.1 - 12.3 fL [facility] RBC 4.24 3.90 - 5.20 M/cumm [facility] MCV 90.3 81.3 - 96.4 fL [facility] MCH 30.2 27.1 - 33.3 pg [facility] MCHC 33.4 32.3 - 35.7 g/dL [facility] RDW CV 12.8 11.1 - 14.9 % [facility] RDW SD 42.1 35.7 - 48.1 fL [facility] NRBC abs 0.00 0.00 - 0.01 K/cumm [facility] Blood 04/23/2025 11:1 1 AM CDT 04/23/2025 4:08 PM CDT us Hugo Alexandre MD LAB BLOOD ORDERABLES Final Re sult [facility] [address] Department [place] [address] * Hepatic function panel (04/23/2025 11:11 AM CDT) [facility] Bilirubin, total 0.3 0.1 - 1.2 mg/dL Bilirubin, direct <0.2 0.1 - 0.3 mg/dL [facility] Protein, pl 6.9 6.5 - 8.5 g/dL [facility] Albumin 4.1 3.5 - 5.0 g/dL [facility] Alk phos 58 40 - 130 Units/L [facility] ALT 28 7 - 45 Units/L [facility] AST 33 10 - 45 Units/L [facility] Blood 04/23/2025 11:1 1 AM CDT 04/23/2025 4:08 PM CDT us Hugo Alexandre MD LAB BLOOD ORDERABLES Final Re sult [facility] [address] Department [place] [address] from Last 3 Months Insurance Member Subscriber Plan / Payer (Ef fective 2021-Present) Name:Korey Stephens Relation to Subscriber:Self Name:Korey Stephens Payer ID:[id number] (NAIC) Type:[facility] MED[facility] Address: [place] [phone] [facility] [id number] [facility] MEDICARE ADVANTAGE Care Teams Dry Man Relationship Specialty Start Date End Date Vincent Truong MD PCP - General 11/26/16
--- OUTSIDE RECORDS SUMMARY | 2025-05-28 13:47 | XMS_ITS | Clinical Summary ---
Author Organization [facility] [employer] Address [address] [place] [address] Care Team Providers Care Range Feeder Name Role Phone Vincent Truong MD Primary Care Provider [phone] Source Comments [facility] [employer],non-owned Affiliates and Associated Physician Practices is amultiple site organization consisting of ambulatory clinics and hospital sitesin [place], [place], [place] and [place]. This disclosure is being madepursuant to the Care Everywhere program and may not contain all information available regarding this patient. Last updated 18.[facility] [employer] Allergies Active Allergy Reactions Criticality Noted Date [...] complete this topic Insurance [employer] [address] [place] [address] CARE Care Teams Range Feeder Relationship Specialty Start Date End Date Vincent Truong MD [address] [place] [id number] PCP - General Family Medicine 06/27/17
== END 2025-05-28 13:36 | disposition home or self-care (01) ==
PROVIDERS: PCP Family Medicine; Visit Provider Internal Medicine Cardiovascular Disease
DX: R93.1 Abnormal findings on diagnostic imaging of heart and coronary circulation (principal); Q23.1 Congenital insufficiency of aortic valve
CPT/HCPCS: 93306